=== PATIENT | female | born 1955 | race Caucasian/White ===

== ENCOUNTER 2018-05-18 15:08 | Observation (INO) | payer MEDICARE, OTHER ==
--- NOTE | 2018-05-18 16:18 | ED ---
Chest Pain HPI - General Chief Complaint: Chest Pain Stated Complaint: Chest pain Time Seen by Provider: 05/18/18 15:26 Source: patient, family, EMS, RN notes reviewed, old records reviewed Mode of arrival: EMS Limitations: no limitations - History of Present Illness Initial Comments: This is a 62-year-old female the ER for evaluation. Patient's poor strain patient presents today for evaluation regards to chest pain. Has persistent chest pain currently. History of cardiac and arteriosclerosis secondary to stroke. No history of heart disease. She has had multiple evaluations regarding stress test, no heart catheterization MD Complaint: chest pain -: days(s) Onset: during rest Pain Location: substernal, left chest Pain Radiation: LUE Severity: mild Severity scale (1-10): 3 Quality: tightness Consistency: constant Improves With: nothing Worsens With: nothing Anginal Symptoms: nausea, dyspnea Other Symptoms: palpitations - Related Data Home Medications Medication Instructions Recorded Confirmed Atorvastatin [Lipitor] 40 mg PO HS 05/08/15 05/18/18 Citalopram Hydrobromide [CeleXA] 40 mg PO HS 05/08/15 05/18/18 Dipyridamole-Aspirin 200-25 mg 1 cap PO BID 05/08/15 05/18/18 [Aggrenox 25MG -200MG] Multivitamins, Thera [Multivitamin 1 tab PO DAILY 05/08/15 05/18/18 (formulary)] Vitamin E (Dl,Tocopheryl Acet) 400 unit PO DAILY 05/08/15 05/18/18 [Vitamin E] Baclofen [Lioresal] 20 mg PO TID 05/18/18 05/18/18 Calcium/Magnesium/Zinc 1 tab PO DAILY 05/18/18 05/18/18 [Wlqowbs-Kkwtvpfvc-Ghga Tablet] Cholecalciferol (Vitamin D3) 2,000 unit PO TID 05/18/18 05/18/18 [Vitamin D3] Cyanocobalamin (Vitamin B-12) 1,000 mcg PO DAILY 05/18/18 05/18/18 [Vitamin B-12] Gabapentin [Neurontin] 400 mg PO TID 05/18/18 05/18/18 L.acidoph,Paracasei, B.lactis 1 cap PO DAILY 05/18/18 05/18/18 [Probiotic] Magnesium Chloride/Calcium(Unknown) 1 tab PO DAILY 05/18/18 05/18/18 Metoprolol Tartrate [Lopressor] 25 mg PO BID 05/18/18 05/18/18 [place]-3 Fatty Acids/Fish Oil [Fish 1 cap PO TID 05/18/18 05/18/18 Oil 1,000 mg Softgel] Allergies Allergy/AdvReac Type Severity Reaction Status Date / Time No Known Allergies Allergy Verified 05/18/18 16:32 Review of Systems ROS Statement: Those systems with pertinent positive or pertinent negative responses have been documented in the HPI. ROS Other: All systems not noted in ROS Statement are negative. Past Medical History Past Medical History: CVA/TIA, Hyperlipidemia, Osteoarthritis (OA) Additional Past Medical History / Comment(s): 05/08/15/ ADMITTED FOR C/O CHEST PAIN W/RADIATION DOWN LT ARM. 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 MURMUR, STROKE 2013 AFFECTED LT EYE(SEES LIGHT/SHAPES, RT ARM/LEG AFFECTED, UP WITH 4 PRONG WALKER AND WEARS A BRACE, SPOUSE SIGNS THINGS FOR HER, PT NEEDS HELP CUTTING FOOD BUT CAN FEED SELF FAMILY STATED NO TROUBLE CHEWING OR SWALLOWING AND CAN USE A STRAW OR DRINK OUT OF CUP NORMALLY, KEEP QUESTIONS SIMPLE WHEN TAKING TO PT(YES/NO ANSWERS).DIVERTICULAR DISEASE PER COLONOSCOPY, HERNIATED L4-, ULCER 12 YEARS AGO. History of Any Multi-Drug Resistant Organisms: None Reported Past Surgical History: Joint Replacement, Tonsillectomy Additional Past Surgical History / Comment(s): laser repair of mvp, right knee replaced, tummy tuck, LT KNEE SCOPE, CARDIAC ABLATION FOR SVT,COLONOSCOPY, MORTONS NEUROMA REMOVED FROM FOOT, LT FOOT HAMMER TOE SX HAS PIN IN PLACE, LT ADRENAL GLAND/TUMOR REMOVED, RT HAND KNUCKLE SX; catract surgery 2018 Past Anesthesia/Blood Transfusion Reactions: No Reported Reaction Past Psychological History: Depression Smoking Status: Former smoker Past Alcohol Use History: None Reported Past Drug Use History: None Reported - Past Family History Father Family Medical History: Dementia, Myocardial Infarction ([place]) Additional Family Medical History / Comment(s): CABG Mother Family Medical History: Dementia, Diabetes Mellitus, Myocardial Infarction ([place]) Additional Family Medical History / Comment(s): CABG General Exam Limitations: no limitations General appearance: alert, in no apparent distress Head exam: Present: atraumatic, normocephalic, normal inspection Eye exam: Present: normal appearance, PERRL, EOMI. Absent: scleral icterus, conjunctival injection, periorbital swelling ENT exam: Present: normal exam, mucous membranes moist Neck exam: Present: normal inspection. Absent: tenderness, meningismus, lymphadenopathy Respiratory exam: Present: normal lung sounds bilaterally. Absent: respiratory distress, wheezes, rales, rhonchi, stridor Cardiovascular Exam: Present: regular rate, normal rhythm, normal heart sounds. Absent: systolic murmur, diastolic murmur, rubs, gallop, clicks GI/Abdominal exam: Present: soft, normal bowel sounds. Absent: distended, tenderness, guarding, rebound, rigid Extremities exam: Present: normal inspection, full ROM, normal capillary refill. Absent: tenderness, pedal edema, joint swelling, calf tenderness Back exam: Present: normal inspection Neurological exam: Present: alert, oriented X3, CN II-XII intact Psychiatric exam: Present: normal affect, normal mood Skin exam: Present: warm, dry, intact, normal color. Absent: rash Course Vital Signs 05/18/18 05/18/18 05/18/18 15:30 15:31 16:00 Temperature 98.9 F Pulse Rate 56 L 55 L 57 L Respiratory 18 18 21 Rate Blood Pressure 105/64 105/64 105/64 O2 Sat by Pulse 96 96 96 Oximetry 05/18/18 05/18/18 05/18/18 16:30 17:00 17:30 Temperature Pulse Rate 53 L 53 L 57 L Respiratory 18 19 18 Rate Blood Pressure 105/64 105/64 119/60 O2 Sat by Pulse 96 97 99 Oximetry - Reevaluation(s) Reevaluation #1: 05/18/18 18:03 Medical record reviewed Reevaluation #2: 05/18/18 18:03 Patient has persistent chest pain Chest Pain MDM - MDM 62 female the ER for evaluation chest pain persistent chest pain here in the ER , patient has history of stroke. Patient will be admitted for cardiac evaluation and observation Critical Care Time Critical Care Time: Yes Total Critical Care Time: 31 Disposition Clinical Impression: Chest pain Disposition: ADMITTED IP TO THIS HOSP Condition: Undetermined Instructions (If sedation given, give patient instructions): Chest Pain (ED) Is patient prescribed a controlled substance at d/c from ED?: No Referrals: Pancho Diggs MD [Primary Care Provider] - 1-2 days
--- NOTE | 2018-05-18 16:19 | XR ---
EXAMINATION TYPE: XR chest 2V DATE OF EXAM: 05/18/2018 COMPARISON: 05/08/2015 HISTORY: 62-year-old female with chest pain TECHNIQUE: AP and lateral views FINDINGS: Heart normal size. Aorta and pulmonary vasculature within normal limits. Mild diffuse interstitial pr ominence. No consolidation or pleural effusion. IMPRESSION: Chronic-appearing changes. No acute process seen.
[2018-05-18 16:24] LABS: Basophils # (A) 0.1 k/uL (0-0.2); Basophils % (A) 1 %; Eosinophils # (A) 0.2 k/uL (0-0.7); Eosinophils % (A) 4 %; HCT 41.3 % (34.0-46.0); HGB 13.6 gm/dL (11.4-16.0); Lymphocytes # (A) 1.7 k/uL (1.0-4.8); Lymphocytes % (A) 31 %; MCH 31.2 pg (25.0-35.0); MCHC 32.9 g/dL (31.0-37.0); Mean Platelet Volume 7.7; Monocytes # (A) 0.3 k/uL (0-1.0); Monocytes % (A) 6 %; Neutrophils # (A) 3.1 k/uL (1.3-7.7); Neutrophils % (A) 56 %; Platelet Count 241 k/uL (150-450); RBC 4.35 m/uL (3.80-5.40); RDW 13.2 % (11.5-15.5); WBC 5.5 k/uL (3.8-10.6)
[2018-05-18 16:33] LABS: INR 0.9 (<1.2); Partial Thromboplastin Time 24.9 sec (22.0-30.0); Prothrombin Time 10.2 sec (9.0-12.0)
[2018-05-18 16:38] LABS: ALT 57 U/L (9-52); AST 35 U/L (14-36); Albumin 3.9 g/dL (3.5-5.0); Alkaline Phosphatase 92 U/L (38-126); Anion Gap 4 mmol/L; Blood Urea Nitrogen 17 mg/dL (7-17); Calcium 9.7 mg/dL (8.4-10.2); Carbon Dioxide 28 mmol/L (22-30); Chloride 109 mmol/L (98-107); Glucose 80 mg/dL (74-99); Lipase 144 U/L (23-300); Magnesium 2.1 mg/dL (1.6-2.3); Potassium 4.6 mmol/L (3.5-5.1); Sodium 141 mmol/L (137-145); Total Bilirubin 0.4 mg/dL (0.2-1.3); Total Protein 6.4 g/dL (6.3-8.2)
[2018-05-18 16:42] LABS: Creatine Kinase 87 U/L (30-135)
[2018-05-18 16:53] LABS: Creatine Kinase MB 0.9 ng/mL (0.0-2.4); Troponin I <0.012 ng/mL (0.000-0.034)
[2018-05-18] MEDS ORDERED: ASPIRIN 81 MG PO STA (18:00)
[2018-05-18] MEDS ORDERED: HEPARIN SOD,PORK IN 0.45% NACL 25,000 UNIT in 0.45% NACL 1 250ML.BAG IV SCH (18:00)
[2018-05-18] MEDS ORDERED: NITROGLYCERIN SL TABS 0.4 MG TAB SUBLINGUAL PRN (18:00)
[2018-05-18] MEDS ORDERED: HEPARIN SODIUM,PORCINE 5,000 UNIT/ML 1 ML VIAL IV ONE (18:00)
[2018-05-18] MEDS ORDERED: HEPARIN SODIUM,PORCINE 5,000 UNIT/ML 1 ML VIAL IV PRN (18:00)
[2018-05-18 19:56] VITALS: BMI 33.7
[2018-05-18] MEDS ORDERED: CITALOPRAM HYDROBROMIDE 20 MG TAB PO SCH (21:00)
[2018-05-18] MEDS: METOPROLOL TARTRATE 25 MG TAB PO SCH (21:54)
[2018-05-18] MEDS: GABAPENTIN 400 MG CAP PO SCH (21:54)
[2018-05-18] MEDS: BACLOFEN 10 MG TAB PO SCH (21:55)
[2018-05-18] MEDS: CHOLECALCIFEROL 1,000 UNIT TAB PO SCH (21:55)
[2018-05-18] MEDS ORDERED: NON-FORMULARY DRUG (Omega-3 Fatty Acids/Fish Oil [Fish Oil 1,000 Mg Softgel] 1 CAP) PO SCH (22:00)
[2018-05-18] MEDS: DIPYRIDAMOLE-ASPIRIN 200-25 MG 1 EACH CPMP.12HR PO SCH (22:15)
[2018-05-18 22:59] LABS: Creatine Kinase 76 U/L (30-135)
[2018-05-18 23:11] LABS: Creatine Kinase MB 0.8 ng/mL (0.0-2.4); Troponin I <0.012 ng/mL (0.000-0.034)
--- NOTE | 2018-05-19 01:59 | HP ---
HISTORY AND PHYSICAL DATE OF ADMISSION: May 18, 2018 DATE OF SERVICE: May 18, 2018. PRESENTING COMPLAINT: Chest pain. HISTORY OF PRESENTING COMPLAINT: This is a patient I saw yesterday evening who follows with Dr. Diggs. Chronic stable medical conditions include right-sided weakness from a prior stroke, hyperlipidemia, osteoarthritis, diverticulosis, L4 herniated disc. The patient also got a bicuspid aortic valve. The patient is dysarthric at baseline from a prior stroke. Answers pretty much yes and no. The patient described the left sternal lower chest pain lasting for what she described probably for about a minute. Had 2 episodes. The pain did not radiate to the neck or arm. There was no shortness of breath. No dizziness. No lightheadedness. No perspiration. Admitted for further cardiac workup. The patient had a cardiac cath back in 2015 that showed minimal disease. The patient is resting comfortably. Initial troponin was negative. Patient is started on IV heparin in the ER. REVIEW OF SYSTEMS: CONSTITUTIONAL: None. HEENT: None. RESPIRATORY: None. CARDIOVASCULAR: As above GASTROINTESTINAL: None. GENITOURINARY: None. MUSCULOSKELETAL: Arthritic pain in joints. DERMATOLOGICAL, HEMATOLOGIC, LYMPHATIC: none. PSYCHIATRY none. NEUROLOGICAL: Expressive dysarthria and weakness on the right side. PAST MEDICAL HISTORY: Right-sided weakness from prior stroke, hyperlipidemia, osteoarthritis, diverticulosis, L4 herniated disc, bicuspid aortic valve, stroke also affected the left eye, sees light and shapes. Does use a 4 pronged walker. Wears a foot brace. No trouble tolerating a diet. PAST SURGICAL HISTORY: Joint replacement, tonsillectomy, laser repair of mitral valve prolapse, right knee replaced, blaire tuck. , cardiac ablation for SVT. and neuroma removed from the foot, left foot hammertoe surgery with left adrenal gland tumor removed, right hand ankle surgery, cataract surgery. PSYCH HISTORY: Depression. SOCIAL HISTORY: The patient stopped smoking in 1996. No alcohol. Lives with her . Does use a 4 pronged cane. FAMILY HISTORY: Dementia, myocardial infarction. HOME MEDICATIONS: 1. Vitamin E 400 units a day. 2. Fish oil 1 capsule p.o. t.i.d. 3. Multivitamin 1 tablet p.o. daily. 4. Lopressor 25 p.o. b.i.d. 5. Probiotic 1 capsule p.o. daily. 6. Neurontin 400 mg t.i.d. 7. Aggrenox 20/200 one capsule p.o. b.i.d. 8. Vitamin B12 1000 mcg a day. 9. Celexa 40 mg q.h.s. 10.Vitamin D3 2000 units p.o. t.i.d. 11.Calcium, magnesium, zinc tablet 1 tablet p.o. daily. 12.Baclofen 20 mg t.i.d. 13.Lipitor 40 mg q.h.s. ALLERGIES: None. PHYSICAL EXAMINATION: VITAL SIGNS: Temperature 98.2, pulse 57, respirations 16, blood pressure 102/63, pulse ox 93 percent on room air. GENERAL APPEARANCE: Well built, BMI 32.3, lying in bed, comfortable. EYES: Pupils equal. Conjunctivae normal. HEENT: External appearance of nose and ears normal. Oral cavity normal. NECK: JVD unable to assess. Mass not palpable. RESPIRATORY: Effort normal. LUNGS: Fair air entry. CARDIOVASCULAR: Ejection systolic murmur in the aortic area. No edema. ABDOMEN: Soft, nontender. Liver and spleen not palpable. LYMPHATIC: No lymph nodes palpable in the neck and axilla. PSYCHIATRY: Not really to assess. NEUROLOGICAL: Speech is dysarthric speech and patient only answers pretty much yes and no. Power in the right arm and the right leg, power in the right leg is 3 x 5, power in the right arm is 1/5. INVESTIGATIONS: White count 5.5, hemoglobin 13.6, potassium 4.6, BUN and creatinine normal. Troponin x2 was negative. EKG tracing personally reviewed by me shows normal sinus rhythm, right bundle branch block. Chest x-ray film personally reviewed by me shows borderline cardiomegaly. Very slight venous prominence. Report reviews report some chronic changes. ASSESSMENT: 1. Anterior chest wall pain, two episodes from what appears to be a minute each. Given risk factors, this could be angina. 2. Right hemiparesis from prior stroke. 3. Hyperlipidemia. 4. Primary osteoarthritis. 5. Colonic diverticulosis. 6. Chronic L4 herniated disc. 7. Bicuspid aortic valve. 8. Chronic dysarthria from prior stroke. PLAN: Patient is started on IV heparin in the ER. Home medications are resumed. Because of bradycardia, we will keep a close eye on the heart rate because of heart rate keep a close eye on the same. Cardiology was consulted. Serial cardiac enzymes in place. The patient will be seen by Cardiology. Care was discussed with the patient. Copy to Dr. Diggs. HILDA / MADELAINE: [id number] /
[2018-05-19 05:55] LABS: Creatine Kinase 70 U/L (30-135)
[2018-05-19 06:06] LABS: Creatine Kinase MB 0.8 ng/mL (0.0-2.4); Troponin I <0.012 ng/mL (0.000-0.034)
[2018-05-19 06:43] LABS: Mean Platelet Volume 7.6; Platelet Count 209 k/uL (150-450)
[2018-05-19 07:12] LABS: Cholesterol 131 mg/dL (<200); HDL Cholesterol 58 mg/dL (40-60); LDL Cholesterol,Calculated 51 mg/dL (0-99); Triglycerides 112 mg/dL (<150)
[2018-05-19 07:51] VITALS: RESP 18
[2018-05-19] MEDS ORDERED: LACTOBACILLUS ACIDOPH & BULGAR 1 EACH PACKET PO SCH (09:00)
[2018-05-19] MEDS ORDERED: ATORVASTATIN 80 MG TAB PO SCH ×2 (09:00→21:00)
[2018-05-19] MEDS ORDERED: NON-FORMULARY DRUG (Calcium/Magnesium/Zinc [Calcium-Magnesium-Zinc Tablet] 1 TAB) PO SCH (09:00)
[2018-05-19] MEDS ORDERED: ASPIRIN 325 MG TAB PO SCH (09:00)
[2018-05-19] MEDS ORDERED: CALCIUM PO SCH (09:00)
[2018-05-19] MEDS ORDERED: VITAMIN E (DL,TOCOPHERYL ACET) 400 UNIT CAP PO SCH (09:00)
[2018-05-19] MEDS ORDERED: MAGNESIUM CHLORIDE PO SCH (09:00)
[2018-05-19] MEDS ORDERED: CYANOCOBALAMIN 500 MCG TAB PO SCH (09:00)
[2018-05-19] MEDS ORDERED: CAFFEINE CITRATE 60 MG/3 ML VIAL IV PRN (11:02)
[2018-05-19] MEDS ORDERED: REGADENOSON 0.4 MG/5 ML SYRINGE IV ONE (11:02)
--- NOTE | 2018-05-19 11:17 | P.CRDCN ---
History of Present Illness History of present illness: This is a pleasant 62 year old female past medical history significant for CVA with residual right-sided weakness and speech difficulty, bicuspid aortic valve with mild to moderate aortic regurgitation, dyslipidemia, SVT status post ablation and thoracic descending aortic aneurysm 4.2 cm on most recent CT. She follows with Dr. Laureano in the office. We've asked to see her in consultation for symptoms of chest discomfort. Her who is at the bedside the patient ate lunch yesterday and had some trauma next. Approximately 90 minutes thereafter she developed a tight squeezing sensation in the left precordial region. There is no significant shortness of breath, dizziness, palpitations, nausea, vomiting or diaphoresis associated with this. Her symptoms persisted for checked her blood pressure at home which she states was normal. Upon arrival to the emergency department she continued to have ongoing chest discomfort. She was initiated on a heparin infusion and her pain ultimately subsided approximately an hour or so later. She is seen and examined resting comfortably lying flat in bed in no acute distress. She denies any further symptoms of chest discomfort. In 2016 she underwent a Lexiscan stress test which was positive prompting her to undergo cardiac catheterization. The catheterization revealed a 50% lesion in the proximal circumflex artery. FFR was performed and was negative therefore no stent or balloon angioplasty was performed. EKG on arrival reveals right bundle branch block pattern with LVH. This is consistent with old EKG. Chest x-ray is negative for an acute cardiopulmonary process. Laboratory data reviewed, cardiac enzymes negative 3, creatinine 0.73, LDL 51 and 2 proBNP 104. Current cardiac medications include atorvastatin 40 mg daily, Lopressor 25 mg twice a day and aggrenox 25/300 mg BID since her CVA. At the time of my exam: CONSTITUTIONAL: Denies fever. Denies chills. EYES: Denies blurred vision. Denies vision changes. Denies eye pain. EARS, NOSE, MOUTH & THROAT: Denies headache. Denies sore throat. Denies ear pain. CARDIOVASCULAR: Denies chest pain. Denies shortness of breath. Denies orthopnea. Denies PND. Denies palpitations. RESPIRATORY: Denies cough. GASTROINTESTINAL: Denies abdominal pain. Denies diarrhea. Denies constipation. Denies nausea. Denies vomiting. MUSCULOSKELETAL: Denies myalgias. INTEGUMENTARY: Denies pruitis. Denies rash. NEUROLOGIC: Denies numbness. Denies tingling. Denies weakness. PSYCHIATRIC: Denies anxiety. Denies depression. ENDOCRINE: Denies fatigue. Denies weight change. Denies polydipsia. Denies polyurina. GENITOURINARY: Denies burning, hematuria or urgency with micturation. HEMATOLOGIC: Denies history of anemia. Denies bleeding. Blood pressure 97/50 heart rate 59 afebrile maintaining oxygen saturation on room air GENERAL: This is a 62-year-old female in no apparent distress at the time of my examination. HEENT: Head is atraumatic, normocephalic. Pupils are equal, round. Sclerae anicteric. Conjunctivae are clear. Mucous membranes of the mouth are moist. Neck is supple. There is no jugular venous distention. No carotid bruit is heard. LUNGS: Clear to auscultation no wheezes, rales or rhonchi. No chest wall tenderness is noted on palpation or with deep breathing. HEART: Regular rate and rhythm with murmur at the base, no rubs or gallops. S1 and S2 heard. ABDOMEN: Soft, nontender. Bowel sounds are heard. No organomegaly noted. EXTREMITIES: No evidence of peripheral edema and no calf tenderness noted. VASCULAR: Radial and dorsalis pedis pulses palpated, no evidence of clubbing. NEUROLOGIC: Patient is awake, alert and oriented. Expressive aphasia chronic from CVA. ASSESSMENT Chest pain, atypical for angina. An acute coronary event at some ruled out with no EKG evidence of ischemia and negative cardiac enzymes. History of coronary artery disease with a known lesion 50% in the proximal circumflex artery History of CVA Dyslipidemia Bicuspid aortic valve History of abdominal aortic aneurysm, stable PLAN An acute coronary event has been ruled out. Obtain 2D echocardiogram and doppler study to assess cardiac structure and function. Perform Lexiscan stress test to assess for reversible cardiac ischemia. If abnormal will consider coronary angiography if significant. Thank you kindly for this consultation. Nurse Practitioner note has been reviewed, I agree with a documented findings and plan of care. Patient was seen and examined. Past Medical History Past Medical History: CVA/TIA, Hyperlipidemia, Osteoarthritis (OA) Additional Past Medical History / Comment(s): 05/08/15/ ADMITTED FOR C/O CHEST PAIN W/RADIATION DOWN LT ARM. 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 MURMUR, STROKE 2014 AFFECTED LT EYE(SEES LIGHT/SHAPES, RT ARM/LEG AFFECTED, UP WITH 4 PRONG WALKER AND WEARS A BRACE, SPOUSE SIGNS THINGS FOR HER, PT NEEDS HELP CUTTING FOOD BUT CAN FEED SELF FAMILY STATED NO TROUBLE CHEWING OR SWALLOWING AND CAN USE A STRAW OR DRINK OUT OF CUP NORMALLY, KEEP QUESTIONS SIMPLE WHEN TAKING TO PT(YES/NO ANSWERS).DIVERTICULAR DISEASE PER COLONOSCOPY, HERNIATED L4-, ULCER 12 YEARS AGO. History of Any Multi-Drug Resistant Organisms: None Reported Past Surgical History: Joint Replacement, Tonsillectomy Additional Past Surgical History / Comment(s): laser repair of mvp, right knee replaced, tummy tuck, LT KNEE SCOPE, CARDIAC ABLATION FOR SVT,COLONOSCOPY, MORTONS NEUROMA REMOVED FROM FOOT, LT FOOT HAMMER TOE SX HAS PIN IN PLACE, LT ADRENAL GLAND/TUMOR REMOVED, RT HAND KNUCKLE SX; catract surgery 2017 Past Anesthesia/Blood Transfusion Reactions: No Reported Reaction Past Psychological History: Depression Additional Psychological History / Comment(s): MAINTAINED ON HER MEDICATION Smoking Status: Former smoker Past Alcohol Use History: None Reported Additional Past Alcohol Use History / Comment(s): QUIT SMOKING 1996 Past Drug Use History: None Reported - Past Family History Father Family Medical History: Dementia, Myocardial Infarction ([place]) Additional Family Medical History / Comment(s): CABG Mother Family Medical History: Dementia, Diabetes Mellitus, Myocardial Infarction ([place]) Additional Family Medical History / Comment(s): CABG Medications and Allergies Home Medications Medication Instructions Recorded Confirmed Type Atorvastatin [Lipitor] 40 mg PO HS 05/08/15 05/18/18 History Citalopram Hydrobromide [CeleXA] 40 mg PO HS 05/08/15 05/18/18 History Dipyridamole-Aspirin 200-25 mg 1 cap PO BID 05/08/15 05/18/18 History [Aggrenox 25MG -200MG] Multivitamins, Thera [Multivitamin 1 tab PO DAILY 05/08/15 05/18/18 History (formulary)] Vitamin E (Dl,Tocopheryl Acet) 400 unit PO DAILY 05/08/15 05/18/18 History [Vitamin E] Baclofen [Lioresal] 20 mg PO TID 05/18/18 05/18/18 History Calcium/Magnesium/Zinc 1 tab PO DAILY 05/18/18 05/18/18 History [Kxfmtma-Sltracmvm-Xutj Tablet] Cholecalciferol (Vitamin D3) 2,000 unit PO TID 05/18/18 05/18/18 History [Vitamin D3] Cyanocobalamin (Vitamin B-12) 1,000 mcg PO DAILY 05/18/18 05/18/18 History [Vitamin B-12] Gabapentin [Neurontin] 400 mg PO TID 05/18/18 05/18/18 History L.acidoph,Paracasei, B.lactis 1 cap PO DAILY 05/18/18 05/18/18 History [Probiotic] Magnesium Chloride/Calcium(Unknown) 1 tab PO DAILY 05/18/18 05/18/18 History Metoprolol Tartrate [Lopressor] 25 mg PO BID 05/18/18 05/18/18 History [place]-3 Fatty Acids/Fish Oil [Fish 1 cap PO TID 05/18/18 05/18/18 History Oil 1,000 mg Softgel] Allergies Allergy/AdvReac Type Severity Reaction Status Date / Time No Known Allergies Allergy Verified 05/18/18 16:32 Physical Exam Vitals: Vital Signs Temp Pulse Pulse Resp BP BP Pulse Ox 05/19/18 07:49 97.6 F 59 L 18 97/50 94 L 05/19/18 04:00 97.7 F 58 L 16 89/53 94 L 05/19/18 00:00 57 L 16 05/18/18 23:58 98.2 F 57 L 16 102/63 93 L 05/18/18 20:00 55 L 16 05/18/18 19:54 97.6 F 55 L 16 117/58 97 05/18/18 19:00 51 L 18 132/70 98 05/18/18 18:30 55 L 18 115/64 98 05/18/18 18:00 50 L 18 115/55 100 05/18/18 17:30 57 L 18 119/60 99 05/18/18 17:00 53 L 19 105/64 97 05/18/18 16:30 53 L 18 105/64 96 05/18/18 16:00 57 L 21 105/64 96 05/18/18 15:31 98.9 F 55 L 18 105/64 96 05/18/18 15:30 56 L 18 105/64 96 Intake and Output 05/18/18 05/19/18 05/19/18 22:59 06:59 14:59 Intake Total 59.21 Balance 59.21 Intake: Intake, IV Titration 59.21 Amount Heparin Sod,Pork in 0.45% 59.21 NaCl 25,000 unit In 0.45 % NaCl 1 250ml.bag @ 12 UNITS/KG/HR 9.3 mls/hr IV .Q24H [facility] Rx#:[id number] Other: # Voids 3 1 Weight 77.564 kg Results 05/19/18 05:56 05/18/18 16:00 Cardiac Enzymes 05/18/18 05/18/18 05/18/18 Range/Units 16:00 16:00 22:11 AST 35 (14-36) U/L CK-MB (CK-2) 0.9 0.8 (0.0-2.4) ng/mL Troponin I <0.012 <0.012 (0.000-0.034) ng/mL 05/19/18 Range/Units 04:09 AST (14-36) U/L CK-MB (CK-2) 0.8 (0.0-2.4) ng/mL Troponin I <0.012 (0.000-0.034) ng/mL Coagulation 05/18/18 05/19/18 05/19/18 Range/Units 16:00 00:17 05:56 PT 10.2 (9.0-12.0) sec APTT 24.9 79.1 H 51.2 H (22.0-30.0) sec Lipids 05/19/18 Range/Units 05:56 Triglycerides 112 (<150) mg/dL Cholesterol 131 (<200) mg/dL HDL Cholesterol 58 (40-60) mg/dL CBC 05/18/18 05/19/18 Range/Units 16:00 05:56 WBC 5.5 (3.8-10.6) k/uL RBC 4.35 (3.80-5.40) m/uL Hgb 13.6 (11.4-16.0) gm/dL Hct 41.3 (34.0-46.0) % Plt Count 241 209 (150-450) k/uL Comprehensive Metabolic Panel 05/18/18 Range/Units 16:00 Sodium 141 (137-145) mmol/L Potassium 4.6 (3.5-5.1) mmol/L Chloride 109 H (98-107) mmol/L Carbon Dioxide 28 (22-30) mmol/L BUN 17 (7-17) mg/dL Creatinine 0.73 (0.52-1.04) mg/dL Glucose 80 (74-99) mg/dL Calcium 9.7 (8.4-10.2) mg/dL AST 35 (14-36) U/L ALT 57 H (9-52) U/L Alkaline Phosphatase 92 (38-126) U/L Total Protein 6.4 (6.3-8.2) g/dL Albumin 3.9 (3.5-5.0) g/dL Current Medications Generic Name Dose Route Start Last Admin Trade Name Freq PRN Reason Stop Dose Admin Aspirin 325 mg 05/19/18 09:00 Aspirin PO DAILY [facility] Atorvastatin Calcium 80 mg 05/19/18 09:00 Lipitor PO DAILY [facility] Baclofen 20 mg 05/18/18 22:00 05/18/18 21:55 Lioresal PO 20 mg TID JJ Administration Cholecalciferol 2,000 unit 05/18/18 22:00 05/18/18 21:55 Vitamin D3 PO 2,000 unit TID JJ Administration Citalopram Hydrobromide 40 mg 05/18/18 21:00 05/18/18 21:54 Celexa PO 40 mg HS JJ Administration Cyanocobalamin 1,000 mcg 05/19/18 09:00 Vitamin B-12 PO DAILY [facility] Dipyridamole/Aspirin 1 each 05/18/18 21:00 05/18/18 22:15 Aggrenox PO 1 each BID JJ Administration Gabapentin 400 mg 05/18/18 22:00 05/18/18 21:54 Neurontin PO 400 mg TID JJ Administration Heparin Sodium (Porcine) 0 unit 05/18/18 18:00 Heparin IV Q6HR PRN Low PTT Protocol Heparin Sodium/Sodium Chloride 250 mls @ 9.3 mls/hr 05/18/18 18:00 05/19/18 01:11 25,000 unit/ Sodium Chloride IV 10 units/kg/hr .Q24H JJ 7.75 mls/hr Titration Protocol 12 UNITS/KG/HR Lactobacillus Acidoph/[place]icus 1 each 05/19/18 09:00 Lactinex PO DAILY [facility] Metoprolol Tartrate 25 mg 05/18/18 21:00 05/18/18 21:54 Lopressor PO 25 mg BID JJ Administration Multivitamins 1 each 05/19/18 12:00 Theragran PO DAILY@1200 JJ Nitroglycerin 0.4 mg 05/18/18 18:00 Nitrostat SUBLINGUAL Q5M PRN Chest Pain Vitamin E 400 unit 05/19/18 09:00 Vitamin E PO DAILY [facility] Intake and Output 05/18/18 05/19/18 05/19/18 22:59 06:59 14:59 Intake Total 59.21 Balance 59.21 Intake: Intake, IV Titration 59.21 Amount Heparin Sod,Pork in 0.45% 59.21 NaCl 25,000 unit In 0.45 % NaCl 1 250ml.bag @ 12 UNITS/KG/HR 9.3 mls/hr IV .Q24H [facility] Rx#:[id number] Other: # Voids 3 1 Weight 77.564 kg 05/19/18 05:56 05/18/18 16:00
[2018-05-19 11:35] VITALS: PULSE 55
[2018-05-19] MEDS ORDERED: MULTIVITAMINS, THERA 1 EACH TAB PO SCH (12:00)
[2018-05-19] MEDS: BACLOFEN 10 MG TAB PO SCH (13:35)
[2018-05-19] MEDS: CHOLECALCIFEROL 1,000 UNIT TAB PO SCH (13:36)
[2018-05-19] MEDS: GABAPENTIN 400 MG CAP PO SCH (13:36)
[2018-05-19] MEDS: METOPROLOL TARTRATE 25 MG TAB PO SCH (13:37)
[2018-05-19] MEDS: DIPYRIDAMOLE-ASPIRIN 200-25 MG 1 EACH CPMP.12HR PO SCH (13:39)
--- NOTE | 2018-05-19 13:48 | NM ---
EXAMINATION TYPE: NM stress lexiscan cardiolite DATE OF EXAM: 05/19/2018 COMPARISON: Prior nuclear medicine stress test May 09, 2015 HISTORY: History of hypertension, tobacco use quit 20 years ago, hypercholesteremia, prior stroke, an d family history of heart attack presents with chest pain TECHNIQUE: After the intravenous administration of 10.76 mCi Tc 99m Sestamibi - Cardiolite resting S PECT images acquired 50 minutes post injection. The patient received 0.4mg Lexiscan, 25.2 mCi Tc 99m Sestamibi - Stress images obtained [address] injection FINDINGS: Review of stress and rest SPECT images demonstrates for uptake in the inferior left ventricular wall on short axis and vertical long axis views more prominent mid segment apex system with old infarct. T here is no scintigraphic evidence for reversible ischemia. Gated analysis shows estimated left ventr icular ejection fraction of 67 %. IMPRESSION: Possible old infarct inferior left ventricular wall new from 2016 study. No reversible is chemia is identified currently.
--- NOTE | 2018-05-19 15:31 | P.HPIM ---
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 Descending thoracic aorta of 4.2 cm on the last CAT scan nor system, Hyperlipidemia. She presents because of chest pain, central of one-day duration. No associated dyspnea. No nausea vomiting. No sweating. Patient has been evaluated by cardiology team and she had a negative stress test showing old Inferior infarct but no reversible ischemia. Patient chest pain is completely resolved and when asked her the rate for her pain she told me at 0/10 in severity. Patient she states she is back to her baseline and she wants to be discharged home. at bedside. Problems and management plan was discussed with the patient and she verbalized understanding and acceptance Patient was found stable and can be discharged home however she needs follow-up as an outpatient. Patient and told me they going to follow-up with her PCP Dr. Anthony and her lens blocker Dr. Laureano as instructed in the discharge instructions. physical exam Gen.: Patient alert awake and oriented X 3, NOT IN DISTRESS CVS: s1-s2, RRR, no murmur CHEST:bilateral CTA, no wheezing or crepitation Abdomen: Soft, no tenderness, no distention, positive bowel sounds Extremities: No leg edema or induration time spent more than 35 minutes Past Medical History Past Medical History: CVA/TIA, Hyperlipidemia, Osteoarthritis (OA) Additional Past Medical History / Comment(s): 05/08// ADMITTED FOR C/O CHEST PAIN W/RADIATION DOWN LT ARM. 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 MURMUR, STROKE 2014 AFFECTED LT EYE(SEES LIGHT/SHAPES, RT ARM/LEG AFFECTED, UP WITH 4 PRONG WALKER AND WEARS A BRACE, SPOUSE SIGNS THINGS FOR HER, PT NEEDS HELP CUTTING FOOD BUT CAN FEED SELF FAMILY STATED NO TROUBLE CHEWING OR SWALLOWING AND CAN USE A STRAW OR DRINK OUT OF CUP NORMALLY, KEEP QUESTIONS SIMPLE WHEN TAKING TO PT(YES/NO ANSWERS).DIVERTICULAR DISEASE PER COLONOSCOPY, HERNIATED L4-, ULCER 12 YEARS AGO. History of Any Multi-Drug Resistant Organisms: None Reported Past Surgical History: Joint Replacement, Tonsillectomy Additional Past Surgical History / Comment(s): laser repair of mvp, right knee replaced, tummy tuck, LT KNEE SCOPE, CARDIAC ABLATION FOR SVT,COLONOSCOPY, MORTONS NEUROMA REMOVED FROM FOOT, LT FOOT HAMMER TOE SX HAS PIN IN PLACE, LT ADRENAL GLAND/TUMOR REMOVED, RT HAND KNUCKLE SX; catract surgery 2018 Past Anesthesia/Blood Transfusion Reactions: No Reported Reaction Past Psychological History: Depression Additional Psychological History / Comment(s): MAINTAINED ON HER MEDICATION Smoking Status: Former smoker Past Alcohol Use History: None Reported Additional Past Alcohol Use History / Comment(s): QUIT SMOKING 1996 Past Drug Use History: None Reported - Past Family History Father Family Medical History: Dementia, Myocardial Infarction ([place]) Additional Family Medical History / Comment(s): CABG Mother Family Medical History: Dementia, Diabetes Mellitus, Myocardial Infarction ([place]) Additional Family Medical History / Comment(s): CABG Medications and Allergies Home Medications Medication Instructions Recorded Confirmed Type Atorvastatin [Lipitor] 40 mg PO HS 05/08/15 05/18/18 History Citalopram Hydrobromide [CeleXA] 40 mg PO HS 05/08/15 05/18/18 History Dipyridamole-Aspirin 200-25 mg 1 cap PO BID 05/08/15 05/18/18 History [Aggrenox 25MG -200MG] Multivitamins, Thera [Multivitamin 1 tab PO DAILY 05/08/15 05/18/18 History (formulary)] Vitamin E (Dl,Tocopheryl Acet) 400 unit PO DAILY 05/08/15 05/18/18 History [Vitamin E] Baclofen [Lioresal] 20 mg PO TID 05/18/18 05/18/18 History Calcium/Magnesium/Zinc 1 tab PO DAILY 05/18/18 05/18/18 History [Kjpvmgz-Qccktvalv-Ccdx Tablet] Cholecalciferol (Vitamin D3) 2,000 unit PO TID 05/18/18 05/18/18 History [Vitamin D3] Cyanocobalamin (Vitamin B-12) 1,000 mcg PO DAILY 05/18/18 05/18/18 History [Vitamin B-12] Gabapentin [Neurontin] 400 mg PO TID 05/18/18 05/18/18 History L.acidoph,Paracasei, B.lactis 1 cap PO DAILY 05/18/18 05/18/18 History [Probiotic] Magnesium Chloride/Calcium(Unknown) 1 tab PO DAILY 05/18/18 05/18/18 History Metoprolol Tartrate [Lopressor] 25 mg PO BID 05/18/18 05/18/18 History [place]-3 Fatty Acids/Fish Oil [Fish 1 cap PO TID 05/18/18 05/18/18 History Oil 1,000 mg Softgel] Allergies Allergy/AdvReac Type Severity Reaction Status Date / Time No Known Allergies Allergy Verified 05/18/18 16:32 Physical Exam Vitals: Vital Signs Temp Pulse Pulse Resp BP BP Pulse Ox 05/19/18 11:34 98.2 F 55 L 18 105/65 95 05/19/18 07:49 97.6 F 59 L 18 97/50 94 L 05/19/18 04:00 97.7 F 58 L 16 89/53 94 L 05/19/18 00:00 57 L 16 05/18/18 23:58 98.2 F 57 L 16 102/63 93 L 05/18/18 20:00 55 L 16 05/18/18 19:54 97.6 F 55 L 16 117/58 97 05/18/18 19:00 51 L 18 132/70 98 05/18/18 18:30 55 L 18 115/64 98 05/18/18 18:00 50 L 18 115/55 100 05/18/18 17:30 57 L 18 119/60 99 05/18/18 17:00 53 L 19 105/64 97 05/18/18 16:30 53 L 18 105/64 96 05/18/18 16:00 57 L 21 105/64 96 05/18/18 15:31 98.9 F 55 L 18 105/64 96 05/18/18 15:30 56 L 18 105/64 96 Intake and Output 05/19/18 05/19/18 05/19/18 06:59 14:59 22:59 Intake Total 59.21 436 Balance 59.21 436 Intake: Intake, IV Titration 59.21 Amount Heparin Sod,Pork in 0.45% 59.21 NaCl 25,000 unit In 0.45 % NaCl 1 250ml.bag @ 12 UNITS/KG/HR 9.3 mls/hr IV .Q24H JJ Rx#:[id number] Oral 236 Other 200 Other: # Voids 3 1 Results CBC & Chem 7: 05/19/18 05:56 05/18/18 16:00 Labs: Abnormal Lab Results - Last 24 Hours (Table) 05/18/18 05/19/18 05/19/18 Range/Units 16:00 00:17 05:56 APTT 79.1 H 51.2 H (22.0-30.0) sec Chloride 109 H (98-107) mmol/L ALT 57 H (9-52) U/L Thrombosis Risk Factor Assmnt - Choose All That Apply Any of the Below Risk Factors Present?: No Each Risk Factor Represents 2 Points: Age 61-74 years Other congenital or acquired thrombophilia - If yes, enter type in comment: No Thrombosis Risk Factor Assessment Total Risk Factor Score: 2 Thrombosis Risk Factor Assessment Level: Low Risk
[2018-05-19 15:43] VITALS: BP 100/65; TEMP 98.3
--- NOTE | 2018-05-19 20:28 | ECHOF ---
Referral Reason: MEASUREMENTS -------- HEIGHT: 154.9 cm WEIGHT: 77.6 kg BP: 97/50 IVSd: 1.0 cm (0.6 - 1.1) LVIDd: 4.2 cm (3.9 - 5.3) LVPWd: 1.0 cm (0.6 - 1.1) IVSs: 1.3 cm LVIDs: 2.8 cm LVPWs: 1.3 cm LAESV Index (A-L): 14.75 ml/m Ao Diam: 3.7 cm (2.0 - 3.7) LA Diam: 1.9 cm (2.7 - 3.8) AV Cusp: 1.2 cm (1.5 - 2.6) EPSS: 0.9 cm MV E Mehdi: 0.79 m/s MV DecT: 292 ms MV A Mehdi: 0.74 m/s MV E/A Ratio: 1.06 AV maxP.75 mmHg AV meanP.80 mmHg RAP: 5.00 mmHg RVSP: 27.00 mmHg MV EF SLOPE: 53.65 mm/s (70 - 150) MV EXCURSION: 1.35 cm (> 18.000) FINDINGS -------- Resting bradycardia (HR<60bpm). This was a technically adequate study. The left ventricular size is normal. Left ventricular wall thickness is normal. Overall left vent ricular systolic function is normal with, an EF between 55 - 60 %. The right ventricle is normal in size and function. Normal LA size by volume 22+/-6 ml/m2. RA appears enlarged. There is moderate aortic valve sclerosis. There is rhylgapr-bt-zdseyf aortic regurgitation. There is mild aortic stenosis present. Peak/mean gradient across the Aortic Valve is 29.75mmHg / 16.80mm Hg. The mitral valve leaflets are mildly thickened. Mild mitral annular calcification present. Mild m itral regurgitation is present. Cdys-tg-glomlbtc tricuspid regurgitation present. Right ventricular systolic pressure is normal at < 35 mmHg. There is no evidence of pulmonary hypertension. The pulmonic valve was not well visualized. The aortic root and ascending aorta are dilated measuring up to 4.0 cm. Normal inferior vena cava with normal inspiratory collapse consistent with estimated right atrial pre ssure of 5 mmHg. There is no pericardial effusion. CONCLUSIONS -------- 1. Resting bradycardia (HR<60bpm). 2. This was a technically adequate study. 3. The left ventricular size is normal. 4. Left ventricular wall thickness is normal. 5. Overall left ventricular systolic function is normal with, an EF between 55 - 60 %. 6. Normal LA size by volume 22+/-6 ml/m2. 7. RA appears enlarged. 8. There is moderate aortic valve sclerosis. 9. There is wzxmbuqn-sp-oknell aortic regurgitation. 10. There is mild aortic stenosis present. 11. Peak/mean gradient across the Aortic Valve is 29.75mmHg / 16.80mmHg. 12. The mitral valve leaflets are mildly thickened. 13. Mild mitral annular calcification present. 14. Mild mitral regurgitation is present. 15. Qmcw-wz-aggahzgb tricuspid regurgitation present. 16. Right ventricular systolic pressure is normal at < 35 mmHg. 17. There is no evidence of pulmonary hypertension. 18. The pulmonic valve was not well visualized. 19. The aortic root and ascending aorta are dilated measuring up to 4.0 cm. 20. There is no pericardial effusion. FINANCIAL BUSINESS ANALYST: Eliezer Black RDCS
--- NOTE | 2018-05-20 11:43 | EST ---
EXERCISE STRESS DATE OF SERVICE: 05/19/2018 AGE: 62 SEX: Female HT: 61" WT: 171 PROTOCOL: Lexiscan Cardiolite STAGE: DURATION OF EXERCISE: HEART RATE REST: 59 BLOOD PRESSURE REST: 112/76 MAXIMUM HEART RATE ACHIEVED: 87 MAXIMUM BLOOD PRESSURE: 140/106 85% MPHR: 100% MPHR: METS: INDICATIONS: Chest pain. CLINICAL INFORMATION: Baseline heart rate 59 beats per minute. Baseline blood pressure 112/76 mmHg. The patient received Lexiscan infusion per protocol. Baseline 12-lead ECG shows sinus rhythm with incomplete right bundle branch block pattern. There was no ECG evidence for ischemia. No arrhythmias were noted. Heart rate and blood pressure remained stable. Nuclear portion of the stress test will be reported separately. MMODL / IJN: [id number] /
--- NOTE | 2018-05-25 14:08 | CDI ---
Date: 05/25/18 CDS/Transportation Superintendent Name: Zee Marin Phone: If any questions, call Nika Khan Trail Construction Worker at [phone] Patient Name: Marsha Patiño Admit Date: 05/18/18 Discharge Date: 05/19/18 ATTENTION: The [facility] Coding Staff appreciate your assistance in clarifying documentation. Please respond to the clarification below the line at the bottom and electronically sign. The [facility] Coding staff will review the response and follow-up if needed. Please note: Queries are made part of the Legal Health Record. If you have any questions, please contact the Trail Construction Worker. Dear Dr. Beckett, Please provide clarification as to the location of the patient's aneurysm. H&P and consult both under History of present illness state Descending thoracic aneurysm. Consult under Assessment it is stated as Abdominal aortic aneurysm. Please clarify. Thank you for your kind consideration. pl contact admitting physician MARIELENA
--- NOTE | 2018-05-27 14:10 | CDI ---
Date: 05/27/18 CDS/Dinkey Engine Mechanic Name: Zee Marin Phone: If any questions, call Nika Khan Quality Engineering Manager at [phone] Patient Name: Marsha Patiño Admit Date: 05/18/18 Discharge Date: 05/19/18 ATTENTION: The [facility] Coding Staff appreciate your assistance in clarifying documentation. Please respond to the clarification below the line at the bottom and electronically sign. The [facility] Coding staff will review the response and follow-up if needed. Please note: Queries are made part of the Legal Health Record. If you have any questions, please contact the Quality Engineering Manager. Dear Dr. Hernandez, Please provide clarification as to the location of the patient's aneurysm. H&P and consult both under History of present illness state Descending thoracic aneurysm. Consult under Assessment it is stated as Abdominal aortic aneurysm. Please clarify. Thank you for your kind consideration response: ascending aortic aneurysm MTDD
== END 2018-05-19 16:54 | disposition home or self-care (01) ==
LOC: EC 15:08 → 1SOBS 18:00
PROVIDERS: ADMIT Hospitalist; ATTEND Hospitalist
DX: R07.89 Other chest pain (principal); R11.2 Nausea with vomiting, unspecified; I35.1 Nonrheumatic aortic (valve) insufficiency; Q23.1 Congenital insufficiency of aortic valve; I25.10 Atherosclerotic heart disease of native coronary artery without angina pectoris; Z87.891 Personal history of nicotine dependence; I69.320 Aphasia following cerebral infarction; I69.351 Hemiplegia and hemiparesis following cerebral infarction affecting right dominant side; I69.322 Dysarthria following cerebral infarction; I69.398 Other sequelae of cerebral infarction; H53.8 Other visual disturbances; I71.2 Thoracic aortic aneurysm, without rupture; I45.10 Unspecified right bundle-branch block; E78.5 Hyperlipidemia, unspecified; F32.9 Major depressive disorder, single episode, unspecified; K57.30 Diverticulosis of large intestine without perforation or abscess without bleeding; M19.91 Primary osteoarthritis, unspecified site; Z82.49 Family history of ischemic heart disease and other diseases of the circulatory system; Z83.3 Family history of diabetes mellitus; M51.26 Other intervertebral disc displacement, lumbar region; Z79.02 Long term (current) use of antithrombotics/antiplatelets; Z79.82 Long term (current) use of aspirin; Z79.899 Other long term (current) drug therapy
CPT/HCPCS: 96366 ×2; 96376; 96365; 99291; 36415; 93005; 93017; 93306; 83880; 80061; 80053; 82550 ×2; 82553 ×2; 83690; 83735; 84484 ×2; 85025; 85049; 85610; 85730 ×2; 71046; 78452; G0378 ×2; A9500; J1644 ×2; J2785

== ENCOUNTER 2018-05-24 21:48 | Emergency (ER) | payer MEDICARE, OTHER ==
[2018-05-24 22:00] VITALS: TEMP 97.5
--- NOTE | 2018-05-24 22:37 | ED ---
Fall HPI - General Chief Complaint: Fall Stated Complaint: Fall Time Seen by Provider: 05/24/18 21:50 Source: patient, EMS Mode of arrival: EMS Limitations: language barrier (Expressive aphasia) - History of Present Illness MD Complaint: fall Onset/Timin -: hour(s) Fall From: standing When Fall Occurred: other (12 hours) Fall Witnessed: yes, by family Place Fall Occurred: home Loss of Consciousness: none Prolonged Down Time?: no Symptoms Prior to Fall: none Location: head, neck, chest Location - Extremities: Right: Leg Severity: moderate Context: tripped/slipped Associated Symptoms: headache - Related Data Home Medications Medication Instructions Recorded Confirmed Citalopram Hydrobromide [CeleXA] 40 mg PO HS 05/08/15 05/24/18 Dipyridamole-Aspirin 200-25 mg 1 cap PO BID 05/08/15 05/24/18 [Aggrenox 25MG -200MG] Multivitamins, Thera [Multivitamin 1 tab PO DAILY 05/08/15 05/24/18 (formulary)] Vitamin E (Dl,Tocopheryl Acet) 400 unit PO DAILY 05/08/15 05/24/18 [Vitamin E] Baclofen [Lioresal] 20 mg PO TID 05/18/18 05/24/18 Calcium/Magnesium/Zinc 1 tab PO DAILY 05/18/18 05/24/18 [Yeeduvz-Kxqwgxagl-Bifi Tablet] Cholecalciferol (Vitamin D3) 2,000 unit PO TID 05/18/18 05/24/18 [Vitamin D3] Cyanocobalamin (Vitamin B-12) 1,000 mcg PO DAILY 05/18/18 05/24/18 [Vitamin B-12] Gabapentin [Neurontin] 400 mg PO TID 05/18/18 05/24/18 L.acidoph,Paracasei, B.lactis 1 cap PO DAILY 05/18/18 05/24/18 [Probiotic] Magnesium Chloride/Calcium(Unknown) 1 tab PO DAILY 05/18/18 05/24/18 Metoprolol Tartrate [Lopressor] 25 mg PO BID 05/18/18 05/24/18 [place]-3 Fatty Acids/Fish Oil [Fish 1 cap PO TID 05/18/18 05/24/18 Oil 1,000 mg Softgel] Previous Rx's Medication Instructions Recorded Aspirin 325 mg PO DAILY #7 tab 05/19/18 Atorvastatin [Lipitor] 80 mg PO HS #30 tab 05/19/18 Nitroglycerin Sl Tabs [Nitrostat] 0.4 mg SUBLINGUAL Q5M PRN #20 tab 05/19/18 Allergies Allergy/AdvReac Type Severity Reaction Status Date / Time No Known Allergies Allergy Verified 05/24/18 21:55 Review of Systems ROS Statement: Those systems with pertinent positive or pertinent negative responses have been documented in the HPI. ROS Other: All systems not noted in ROS Statement are negative. Limitations: ROS unobtainable due to patients medical condition (Aphasia) Constitutional: Denies: fever, weakness Respiratory: Denies: cough, dyspnea Cardiovascular: Denies: chest pain, palpitations, syncope Gastrointestinal: Denies: abdominal pain, nausea, vomiting Musculoskeletal: Reports: arthralgia. Denies: back pain Skin: Denies: lesions Neurological: Reports: headache. Denies: weakness Past Medical History Past Medical History: CVA/TIA, Hyperlipidemia, Osteoarthritis (OA) Additional Past Medical History / Comment(s): 05/08/15/ ADMITTED FOR C/O CHEST PAIN W/RADIATION DOWN LT ARM. 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 MURMUR, STROKE 2013 AFFECTED LT EYE(SEES LIGHT/SHAPES, RT ARM/LEG AFFECTED, UP WITH 4 PRONG WALKER AND WEARS A BRACE, SPOUSE SIGNS THINGS FOR HER, PT NEEDS HELP CUTTING FOOD BUT CAN FEED SELF FAMILY STATED NO TROUBLE CHEWING OR SWALLOWING AND CAN USE A STRAW OR DRINK OUT OF CUP NORMALLY, KEEP QUESTIONS SIMPLE WHEN TAKING TO PT(YES/NO ANSWERS).DIVERTICULAR DISEASE PER COLONOSCOPY, HERNIATED L4-, ULCER 12 YEARS AGO. History of Any Multi-Drug Resistant Organisms: None Reported Past Surgical History: Joint Replacement, Tonsillectomy Additional Past Surgical History / Comment(s): laser repair of mvp, right knee replaced, tummy tuck, LT KNEE SCOPE, CARDIAC ABLATION FOR SVT,COLONOSCOPY, MORTONS NEUROMA REMOVED FROM FOOT, LT FOOT HAMMER TOE SX HAS PIN IN PLACE, LT ADRENAL GLAND/TUMOR REMOVED, RT HAND KNUCKLE SX; catract surgery 2018 Past Anesthesia/Blood Transfusion Reactions: No Reported Reaction Past Psychological History: Depression Smoking Status: Former smoker Past Alcohol Use History: None Reported Past Drug Use History: None Reported - Past Family History Father Family Medical History: Dementia, Myocardial Infarction ([place]) Additional Family Medical History / Comment(s): CABG Mother Family Medical History: Dementia, Diabetes Mellitus, Myocardial Infarction ([place]) Additional Family Medical History / Comment(s): CABG General Exam Limitations: altered mental status General appearance: alert, in no apparent distress Head exam: Present: other (Contusion right forehead area. No palpable deformity. Moderate tenderness.) Eye exam: Present: normal appearance. Absent: scleral icterus, conjunctival injection ENT exam: Present: normal oropharynx Neck exam: Present: normal inspection, other (Cervical collar) Respiratory exam: Present: normal lung sounds bilaterally, chest wall tenderness (Right ribs, mid axillary line.). Absent: respiratory distress, wheezes, rales, rhonchi, stridor Cardiovascular Exam: Present: regular rate, normal rhythm, normal heart sounds. Absent: systolic murmur, diastolic murmur, rubs, gallop GI/Abdominal exam: Present: soft. Absent: distended, tenderness, guarding, rebound, mass Extremities exam: Present: normal inspection, tenderness (Lateral aspect right femur). Absent: calf tenderness Back exam: Present: normal inspection. Absent: vertebral tenderness Neurological exam: Present: alert Psychiatric exam: Present: other (There is marked expressive aphasia, which the patient's states is her usual baseline.) Skin exam: Present: warm, dry, intact, normal color. Absent: rash Course Vital Signs 05/24/18 21:51 Temperature 97.5 F L Pulse Rate 69 Respiratory 18 Rate Blood Pressure 101/51 O2 Sat by Pulse 96 Oximetry Medical Decision Making - Lab Data Result diagrams: 05/24/18 22:30 05/24/18 22:30 Lab Results 05/24/18 05/24/18 Range/Units 22:30 22:30 WBC 7.3 (3.8-10.6) k/uL RBC 4.40 (3.80-5.40) m/uL Hgb 13.5 (11.4-16.0) gm/dL Hct 41.3 (34.0-46.0) % MCV 93.8 (80.0-100.0) fL MCH 30.7 (25.0-35.0) pg MCHC 32.8 (31.0-37.0) g/dL RDW 13.1 (11.5-15.5) % Plt Count 234 (150-450) k/uL Neutrophils % 65 % Lymphocytes % 25 % Monocytes % 6 % Eosinophils % 3 % Basophils % 1 % Neutrophils # 4.7 (1.3-7.7) k/uL Lymphocytes # 1.8 (1.0-4.8) k/uL Monocytes # 0.4 (0-1.0) k/uL Eosinophils # 0.2 (0-0.7) k/uL Basophils # 0.0 (0-0.2) k/uL Sodium 140 (137-145) mmol/L Potassium 4.2 (3.5-5.1) mmol/L Chloride 108 H (98-107) mmol/L Carbon Dioxide 27 (22-30) mmol/L Anion Gap 5 mmol/L BUN 19 H (7-17) mg/dL Creatinine 0.75 (0.52-1.04) mg/dL Est GFR (CKD-EPI)AfAm >90 (>60 ml/min/1.73 sqM) Est GFR (CKD-EPI)NonAf 85 (>60 ml/min/1.73 sqM) Glucose 100 H (74-99) mg/dL Calcium 9.6 (8.4-10.2) mg/dL Disposition Clinical Impression: Fall, Head injury Disposition: HOME SELF-CARE Condition: Fair Instructions (If sedation given, give patient instructions): Fall Prevention for Older Adults (ED), Head Injury (ED) Is patient prescribed a controlled substance at d/c from ED?: No Referrals: Pancho Diggs MD [Primary Care Provider] - 1-2 days
[2018-05-24 23:13] LABS: Basophils % (A) 1 %; Eosinophils # (A) 0.2 k/uL (0-0.7); Eosinophils % (A) 3 %; HCT 41.3 % (34.0-46.0); HGB 13.5 gm/dL (11.4-16.0); Lymphocytes # (A) 1.8 k/uL (1.0-4.8); Lymphocytes % (A) 25 %; MCH 30.7 pg (25.0-35.0); MCHC 32.8 g/dL (31.0-37.0); MCV 93.8 fL (80.0-100.0); Mean Platelet Volume 7.2; Monocytes # (A) 0.4 k/uL (0-1.0); Monocytes % (A) 6 %; Neutrophils # (A) 4.7 k/uL (1.3-7.7); Neutrophils % (A) 65 %; Platelet Count 234 k/uL (150-450); RDW 13.1 % (11.5-15.5); WBC 7.3 k/uL (3.8-10.6)
[2018-05-24 23:21] LABS: Anion Gap 5 mmol/L; Blood Urea Nitrogen 19 mg/dL (7-17); Calcium 9.6 mg/dL (8.4-10.2); Carbon Dioxide 27 mmol/L (22-30); Chloride 108 mmol/L (98-107); Glucose 100 mg/dL (74-99); Potassium 4.2 mmol/L (3.5-5.1); Sodium 140 mmol/L (137-145)
--- NOTE | 2018-05-24 23:31 | CT ---
EXAMINATION TYPE: CT brain rakesh avery DATE OF EXAM: 05/24/2018 COMPARISON: None HISTORY: fall CT DLP: 1362.1 mGycm Automated exposure control for dose reduction was used. TECHNIQUE: CT scan of the head and cervical spine are performed without contrast. FINDINGS: There is a large area of hypodensity in the left cerebral hemisphere related to old left middle cerebral artery infarct. There is enlargement of the left lateral ventricle. There is no midli ne shift. There is no sign of intracranial hemorrhage. The calvarium is intact. The cervical vertebra have normal alignment. There is narrowing of disc spaces from C4 to T1. There i s spurring of the endplates. Skull base is intact. Facet joints are intact. There is posterior endpla te spur formation at C5-6 with narrowing of the spinal canal to 6 mm. IMPRESSION: Old left middle cerebral artery distribution infarct. No acute intracranial abnormality. Spondylotic changes in the mid and lower cervical spine. No fracture. 6 mm cervical spinal stenosis a t C5-6.
--- NOTE | 2018-05-24 23:37 | XR ---
EXAMINATION TYPE: XR pelvis AP view DATE OF EXAM: 05/24/2018 COMPARISON: NONE HISTORY: Fall. Pain. TECHNIQUE: Single view FINDINGS: There is some narrowing and spurring at the right hip joint. I see no fracture nor dislocat ion. Pelvic ring is intact. Sacroiliac joints are intact. There is no evidence of femoral fracture. IMPRESSION: Osteoarthritis in the right hip joint. No fracture seen. Spondylotic changes in the lower cervical spine noted.
--- NOTE | 2018-05-24 23:39 | XR ---
EXAMINATION TYPE: XR ribs RT w pa chest xray DATE OF EXAM: 05/24/2018 COMPARISON: NONE HISTORY: Fall. Rib pain. TECHNIQUE: 5 views FINDINGS: Heart and mediastinum are within normal limits. Lungs are clear of infiltrate. There is no pleural effusion or pneumothorax. I see no rib fracture. IMPRESSION: Normal chest. Normal right rib exam.
--- NOTE | 2018-05-24 23:40 | XR ---
EXAMINATION TYPE: XR femur RT DATE OF EXAM: 05/24/2018 COMPARISON: NONE HISTORY: Pain TECHNIQUE: 4 views FINDINGS: There is narrowing of the right hip joint space with spur formation. There is a right knee prosthesis. Components appear in anatomic position. I see no fracture. IMPRESSION: Osteoarthritis in the right hip joint. No fracture seen.
[2018-05-25] MEDS ORDERED: MORPHINE SULFATE 4 MG/ML SYRINGE IV STA (00:16)
[2018-05-25 00:27] VITALS: BP 100/57; PULSE 68; RESP 16
== END 2018-05-25 01:18 | disposition home or self-care (01) ==
LOC: EC 21:48
DX: S00.83XA Contusion of other part of head, initial encounter (principal); M19.90 Unspecified osteoarthritis, unspecified site; F32.9 Major depressive disorder, single episode, unspecified; Z96.641 Presence of right artificial hip joint; Z86.73 Personal history of transient ischemic attack (TIA), and cerebral infarction without residual deficits; Z87.891 Personal history of nicotine dependence; Z79.82 Long term (current) use of aspirin; Z79.899 Other long term (current) drug therapy; W01.10XA Fall on same level from slipping, tripping and stumbling with subsequent striking against unspecified object, initial encounter; Y92.009 Unspecified place in unspecified non-institutional (private) residence as the place of occurrence of the external cause
CPT/HCPCS: 36415; 80048; 85025; 71101; 72170; 73552; 72125; 70450; 99284; 96374; L0120; J2270

== ENCOUNTER → 2018-08-06 | Outpatient (CLI) | payer MEDICARE, OTHER ==
--- NOTE | 2018-08-07 13:35 | MM ---
Reason for exam: screening (asymptomatic). Last mammogram was performed 2 years and 8 months ago. History: Patient is postmenopausal. Physical Findings: A clinical breast exam by your physician is recommended on an annual basis and results should be correlated with mammographic findings. MG Screening Mammo w CAD Bilateral CC and MLO view(s) were taken. Prior study comparison: November 30, 2015, bilateral MG diagnostic mammo w CAD PETE. April 06, 2013, mammogram. There are scattered fibroglandular densities. Benign calcifications in the left breast. No suspicious abnormality. No significant changes when compared with prior studies. ASSESSMENT: Benign, BI-RAD 2 RECOMMENDATION: Routine screening mammogram of both breasts in 1 year.
== END | disposition home or self-care (01) ==
LOC: RADMAMWWP 12:52
PROVIDERS: ATTEND Family Medicine
DX: Z12.31 Encounter for screening mammogram for malignant neoplasm of breast (principal)
CPT/HCPCS: 77067

== ENCOUNTER 2019-02-28 05:26 | Observation (INO) | payer MEDICARE, OTHER ==
[2019-02-28 05:47] LABS: Basophils # (A) 0.1 k/uL (0-0.2); Basophils % (A) 2 %; Eosinophils # (A) 0.2 k/uL (0-0.7); Eosinophils % (A) 5 %; HCT 38.7 % (34.0-46.0); HGB 12.7 gm/dL (11.4-16.0); Lymphocytes # (A) 1.7 k/uL (1.0-4.8); Lymphocytes % (A) 36 %; MCH 31.2 pg (25.0-35.0); MCHC 32.8 g/dL (31.0-37.0); MCV 95.2 fL (80.0-100.0); Mean Platelet Volume 7.1; Monocytes # (A) 0.3 k/uL (0-1.0); Monocytes % (A) 6 %; Neutrophils # (A) 2.3 k/uL (1.3-7.7); Neutrophils % (A) 50 %; Platelet Count 231 k/uL (150-450); RBC 4.06 m/uL (3.80-5.40); RDW 12.8 % (11.5-15.5); WBC 4.6 k/uL (3.8-10.6)
[2019-02-28 06:00] LABS: D-Dimer 0.45 mg/L FEU (<0.60); Partial Thromboplastin Time 24.9 sec (22.0-30.0); Prothrombin Time 10.4 sec (9.0-12.0)
[2019-02-28 06:01] LABS: ALT 26 U/L (9-52); AST 29 U/L (14-36); African American GFR (CKD) >90 (>60 ml/min/1.73 sqM); Albumin 3.6 g/dL (3.5-5.0); Alkaline Phosphatase 67 U/L (38-126); Blood Urea Nitrogen 15 mg/dL (7-17); Calcium 9.2 mg/dL (8.4-10.2); Carbon Dioxide 24 mmol/L (22-30); Glucose 97 mg/dL (74-99); Non-African American GFR(CKD) >90 (>60 ml/min/1.73 sqM); Potassium 4.3 mmol/L (3.5-5.1); Sodium 141 mmol/L (137-145); Total Bilirubin 0.5 mg/dL (0.2-1.3); Total Protein 6.2 g/dL (6.3-8.2)
[2019-02-28 06:09] LABS: Anion Gap 6 mmol/L; Chloride 111 mmol/L (98-107)
--- NOTE | 2019-02-28 06:17 | XR ---
EXAM: XR Chest, 2 Views CLINICAL HISTORY: ITS.REASON XR Reason: Chest Pain TECHNIQUE: Frontal and lateral views of the chest. COMPARISON: 08/07/2018 FINDINGS: Lungs: Diminished lung volumes. No definite focal consolidation. The pulmonary vas suture demonstrates no significant radiographic abnormality. Pleural space: Unremarkable. No pneumothorax. No large pleural effusion. Heart: Unremarkable. No cardiomegaly. Mediastinum: Unremarkable. No significant abnormality identified. The trachea is midline. Bones/joints: Unremarkable. Tubes, lines and devices: The extensive overlying EKG lead artifact on the frontal projection. IMPRESSION: Diminished lung volumes without focal consolidation or acute cardiopulmonary process identified.
--- NOTE | 2019-02-28 06:55 | ED ---
Chest Pain HPI - General Chief Complaint: Chest Pain Stated Complaint: Chest Pain Time Seen by Provider: 02/28/19 05:30 Source: family, EMS Mode of arrival: EMS Limitations: no limitations - History of Present Illness Initial Comments: Marsha is a 63 yo female with PMH of CVA in the past presents to the ED via EMS for evaluation of chest pain, woke her from sleep this morning, resolved with nitro en route with EMS. patient has no history of CAD, has history of afib with ablation >10 years ago, does not follow with cardiology. Patient is non smoker. MD Complaint: chest pain -: minutes(s) Onset: during rest Pain Location: substernal, left chest Pain Radiation: none Severity: moderate Quality: tightness Consistency: now resolved Improves With: nitroglycerin Worsens With: nothing Anginal Symptoms: dyspnea Treatments Prior to Arrival: aspirin, nitroglycerin - Related Data On Oral Contraceptives: No Home Medications Medication Instructions Recorded Confirmed Citalopram Hydrobromide [CeleXA] 40 mg PO HS 05/08/15 05/24/18 Dipyridamole-Aspirin 200-25 mg 1 cap PO BID 05/08/15 05/24/18 [Aggrenox 25MG -200MG] Multivitamins, Thera [Multivitamin 1 tab PO DAILY 05/08/15 05/24/18 (formulary)] Vitamin E (Dl,Tocopheryl Acet) 400 unit PO DAILY 05/08/15 05/24/18 [Vitamin E] Baclofen [Lioresal] 20 mg PO TID 05/18/18 05/24/18 Calcium/Magnesium/Zinc 1 tab PO DAILY 05/18/18 05/24/18 [Jmrdfdd-Gqipyfrsz-Necr Tablet] Cholecalciferol (Vitamin D3) 2,000 unit PO TID 05/18/18 05/24/18 [Vitamin D3] Cyanocobalamin (Vitamin B-12) 1,000 mcg PO DAILY 05/18/18 05/24/18 [Vitamin B-12] Gabapentin [Neurontin] 400 mg PO TID 05/18/18 05/24/18 L.acidoph,Paracasei, B.lactis 1 cap PO DAILY 05/18/18 05/24/18 [Probiotic] Magnesium Chloride/Calcium(Unknown) 1 tab PO DAILY 05/18/18 05/24/18 Metoprolol Tartrate [Lopressor] 25 mg PO BID 05/18/18 05/24/18 [place]-3 Fatty Acids/Fish Oil [Fish 1 cap PO TID 05/18/18 05/24/18 Oil 1,000 mg Softgel] Previous Rx's Medication Instructions Recorded Aspirin 325 mg PO DAILY #7 tab 05/19/18 Atorvastatin [Lipitor] 80 mg PO HS #30 tab 05/19/18 Nitroglycerin Sl Tabs [Nitrostat] 0.4 mg SUBLINGUAL Q5M PRN #20 tab 05/19/18 Allergies Allergy/AdvReac Type Severity Reaction Status Date / Time No Known Allergies Allergy Verified 02/28/19 05:35 Review of Systems ROS Statement: Those systems with pertinent positive or pertinent negative responses have been documented in the HPI. ROS Other: All systems not noted in ROS Statement are negative. EKG Findings - EKG Comments: EKG Findings:: EKG obtained due to complaint of chest pain - EKG obtained at 5:29 - rate 58, rhythm sinus garry, RBBB, KS 176, QRS 130, QTc 457, no acute ST elevations or depressions, no ischemia or infarction. Past Medical History Past Medical History: CVA/TIA, Hyperlipidemia, Osteoarthritis (OA) Additional Past Medical History / Comment(s): 05/08/15/ ADMITTED FOR C/O CHEST PAIN W/RADIATION DOWN LT ARM. 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 MURMUR, STROKE 2014 AFFECTED LT EYE(SEES LIGHT/SHAPES, RT ARM/LEG AFFECTED, UP WITH 4 PRONG WALKER AND WEARS A BRACE, SPOUSE SIGNS THINGS FOR HER,PT NEEDS HELP CUTTING FOOD BUT CAN FEED SELF FAMILY STATED NO TROUBLE CHEWING OR SWALLOWING AND CAN USE A STRAW OR DRINK OUT OF CUP NORMALLY, KEEP QUESTIONS SIMPLE WHEN TAKING TO PT(YES/NO ANSWERS).DIVERTICULAR DISEASE PER COLONOSCOPY, HERNIATED L4-, ULCER 12 YEARS AGO. History of Any Multi-Drug Resistant Organisms: None Reported Past Surgical History: Joint Replacement, Tonsillectomy Additional Past Surgical History / Comment(s): laser repair of mvp, right knee replaced, tummy tuck, LT KNEE SCOPE, CARDIAC ABLATION FOR SVT,COLONOSCOPY, MORTONS NEUROMA REMOVED FROM FOOT, LT FOOT HAMMER TOE SX HAS PIN IN PLACE, LT ADRENAL GLAND/TUMOR REMOVED, RT HAND KNUCKLE SX; catract surgery 2018 Past Anesthesia/Blood Transfusion Reactions: No Reported Reaction Past Psychological History: Depression Smoking Status: Former smoker Past Alcohol Use History: None Reported Past Drug Use History: None Reported - Past Family History Father Family Medical History: Dementia, Myocardial Infarction ([place]) Additional Family Medical History / Comment(s): CABG Mother Family Medical History: Dementia, Diabetes Mellitus, Myocardial Infarction ([place]) Additional Family Medical History / Comment(s): CABG General Exam Limitations: no limitations General appearance: alert, in no apparent distress Head exam: Present: atraumatic, normocephalic Eye exam: Present: normal appearance ENT exam: Present: normal exam Neck exam: Present: normal inspection Respiratory exam: Present: normal lung sounds bilaterally Cardiovascular Exam: Present: bradycardia, systolic murmur GI/Abdominal exam: Present: soft. Absent: distended Rectal exam: Present: deferred Extremities exam: Present: normal inspection, full ROM Neurological exam: Present: alert, oriented X3, other (right sided weakness secondary to previous stroke) Psychiatric exam: Present: normal affect, normal mood Course Vital Signs 02/28/19 05:28 Temperature 98.3 F Pulse Rate 58 L Respiratory 18 Rate Blood Pressure 96/64 O2 Sat by Pulse 95 Oximetry Chest Pain MDM - MDM 63 yo female with PMH of CVA, no known CAD presenting with CP that resolved with nitro/ASA EKG non-ischemic Labs unremarkable Will plan to admit for serial Trop and evaluation by cardiology. - Wells Criteria Clinical Symptoms of DVT: (0) No No Alternative Diagnosis: (0) No Immobilization of Surgery in Previous 4 Weeks: (0) No Previous DVT/PE: (0) No Hemoptysis: (0) No Malignancy: (0) No - LALY Score Age > 65: (0) No 3 or more CAD Risk Factors: (0) No Known CAD with more than 50% Stenosis: (0) No Aspirin use within the Past 7 Days: (0) No Elevated Cardiac Markers: (0) No ST Deviation Greater than 0.5mm: (0) No Disposition Clinical Impression: Chest pain Disposition: ADMITTED IP TO THIS [facility] Condition: Stable Referrals: Pancho Diggs MD [Primary Care Provider] - 1-2 days
[2019-02-28] MEDS ORDERED: NITROGLYCERIN SL TABS 0.4 MG TAB SUBLINGUAL PRN (07:13)
[2019-02-28 07:59] VITALS: BMI 31.5
[2019-02-28] MEDS: GABAPENTIN 400 MG CAP PO SCH ×3 (08:42→21:02)
[2019-02-28] MEDS: METOPROLOL TARTRATE 25 MG TAB PO SCH ×2 (08:42→21:02)
[2019-02-28] MEDS: BACLOFEN 10 MG TAB PO SCH ×3 (08:42→21:01)
[2019-02-28] MEDS ORDERED: NALOXONE 0.4 MG/ML 1 ML VIAL IV PRN (08:47)
[2019-02-28] MEDS ORDERED: ONDANSETRON 4 MG/2 ML VIAL IVP PRN (08:47)
[2019-02-28] MEDS ORDERED: ACETAMINOPHEN TAB 325 MG TAB PO PRN (08:47)
[2019-02-28] MEDS ORDERED: traMADol 50 MG TAB PO PRN (08:47)
--- NOTE | 2019-02-28 08:49 | P.HPIM ---
History of Present Illness H&P Date: 02/28/19 Chief Complaint: chest pain Patient is a 63-year-old female past medical history of cerebrovascular accident in 2013 resulting in right sided hemiparesis with dysarthria, bicuspid aortic valve, atrial fibrillation status post ablation, arthritis, and prior gastric ulcer who presented to the emergency department with complaints of chest pain. In the ER she underwent an extensive evaluation. Her initial vital signs were within normal limits with a heart rate of 58. Initial laboratory analysis was unremarkable with a negative troponin. EKG is reviewed by myself revealed sinus bradycardia at a rate of 58 with a right-sided bundle branch block that is unchanged from April 2018. She had taken 2 aspirin prior to coming to the emergency department. She did receive nitroglycerin in route via EMS and her chest pain improved. She was subsequently admitted to observation for further monitoring. Her last stress test was in April 2018 was a Lexiscan which showed possible prior infarct but no reversible ischemia. She follows with Dr. Laureano as her director of community life and Dr. Diggs as her primary care physician. She is unsure of any family history of Myocardial infarction but this is recorded in prior charts. Cath in 2015 which showed 50% proximal circumflex lesion Patient seen and examined at bedside with present. She is only able to answer yes or no questions. This morning she awoke and needed she is the restroom. Her took her to the restroom in her wheelchair and when she returned to bed she started having left-sided chest pain. The pain stayed on the left side of her chest and did not radiate. She denies any associated priyank rtness of breath, pain into her left arm, unusual numbness or tingling, nausea, lightheadedness, palpitations, or diaphoresis. Her does say she ate more for dinner than typical last night. Any recent cough, cold, fever, flu and has otherwise been at her baseline. Her chest pain lasted approximately 40 minutes. Her had her chew 2 full dose Aspirin. Chest pain abated when she received nitro. EMS in route to the hospital. Review of Systems Pertinent positives and negatives as discussed in HPI, a complete review of systems was performed and all other systems are negative. 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(SEES LIGHT/SHAPES, Right sided hemiparesis requiring AFO fo root drop and dysarthria, KEEP QUESTIONS SIMPLE WHEN TAKING TO PT(YES/NO ANSWERS).DIVERTICULAR DISEASE PER COLONOSCOPY, JIMMY IATED L4-, Gastric Ulcer, SVT s/p ablation , Descending aortic aneurysm History of Any Multi-Drug Resistant Organisms: None Reported Past Surgical History: Joint Replacement, Tonsillectomy Additional Past Surgical History / Comment(s): laser repair of mvp, right knee replaced, tummy tuck, LT KNEE SCOPE, CARDIAC ABLATION FOR SVT,COLONOSCOPY, MORTONS NEUROMA REMOVED FROM FOOT, LT FOOT HAMMER TOE SX HAS PIN IN PLACE, LT ADRENAL GLAND/TUMOR REMOVED, RT HAND KNUCKLE SX; catract surgery 2017 Past Anesthesia/Blood Transfusion Reactions: No Reported Reaction Past Psychological History: Depression Additional Psychological History / Comment(s): MAINTAINED ON HER MEDICATION Smoking Status: Former smoker Past Alcohol Use History: None Reported Additional Past Alcohol Use History / Comment(s): QUIT SMOKING 1996 Past Drug Use History: None Reported Additional History: Per only walks for very short distances and she uses a right AFO with a 4 prong cane but for most distances she uses a wheelchair, can answer yes/no questions secondary to dysarthria from prior stroke. - Past Family History Father Family Medical History: Dementia, Myocardial Infarction ([place]) Additional Family Medical History / Comment(s): CABG Mother Family Medical History: Dementia, Diabetes Mellitus, Myocardial Infarction ([place]) Additional Family Medical History / Comment(s): CABG Medications and Allergies Home Medications Medication Instructions Recorded Confirmed Type Citalopram Hydrobromide [CeleXA] 40 mg PO HS 05/08/15 02/28/19 History Dipyridamole-Aspirin 200-25 mg 1 cap PO BID 05/08/15 02/28/19 History [Aggrenox 25MG -200MG] Multivitamins, Thera [Multivitamin 1 tab PO DAILY 05/08/15 02/28/19 History (formulary)] Vitamin E (Dl,Tocopheryl Acet) 400 unit PO DAILY 05/08/15 02/28/19 History [Vitamin E] Baclofen [Lioresal] 20 mg PO TID 05/18/18 02/28/19 History Cholecalciferol (Vitamin D3) 2,000 unit PO BID 05/18/18 02/28/19 History [Vitamin D3] Cyanocobalamin (Vitamin B-12) 1,000 mcg PO DAILY 05/18/18 02/28/19 History [Vitamin B-12] Gabapentin [Neurontin] 400 mg PO TID 05/18/18 02/28/19 History L.acidoph,Paracasei, B.lactis 1 cap PO DAILY 05/18/18 02/28/19 History [Probiotic] Metoprolol Tartrate [Lopressor] 25 mg PO BID 05/18/18 02/28/19 History Atorvastatin Calcium [Lipitor] 40 mg PO HS 02/28/19 02/28/19 History Calcium Citrate/Vitamin D/Magnesium 1 tab PO DAILY 02/28/19 02/28/19 History Fish Oil/Dha/Epa [Fish Oil 1,200 1 cap PO TID 02/28/19 02/28/19 History mg Fish Oil] Slow-Mag/Calcium 1 tab PO DAILY 02/28/19 02/28/19 History Allergies Allergy/AdvReac Type Severity Reaction Status Date / Time No Known Allergies Allergy Verified 02/28/19 07:25 Physical Exam Osteopathic Statement: *. No significant issues noted on an osteopathic structural exam other than those noted in the History and Physical/Consult. Vitals: Vital Signs Temp Pulse Pulse Resp BP BP Pulse Ox 02/28/19 08:00 97.6 F 60 18 103/65 96 02/28/19 07:33 98.3 F 51 L 16 93/49 94 L 02/28/19 07:29 51 L 16 93/49 94 L 02/28/19 07:00 51 L 16 93/49 94 L 02/28/19 06:34 51 L 20 95/51 97 02/28/19 06:30 54 L 13 92/56 94 L 02/28/19 06:00 53 L 15 94 L 02/28/19 05:30 94 L 02/28/19 05:28 98.3 F 58 L 18 96/64 95 Intake and Output 02/27/19 02/28/19 02/28/19 22:59 06:59 14:59 Other: # Voids 1 Weight 80.739 kg General: non toxic, no distress, appears at stated age, normal weight Derm: no unusual rashes/lesions no unusual ecchymoses, warm, dry Head: atraumatic, normocephalic, symmetric Eyes: EOMI, no lid lag, anicteric sclera, pupils equal round reactive to light ENT: Nose and ears atraumatic, no thrush, no pharyngeal erythema Neck: No thyromegaly, no cervical lymphadenopathy, trachea midline, supple Mouth: no lip lesion, mucus membranes moist Cardiovascular: S1S2 reg, no murmur, positive posterior tibial pulse bilateral, no edema, capillary refill less than 2 seconds Lungs: CTA bilateral, no rhonchi, no rales , no accessory muscle use Abdominal: soft, nontender to palpation, no guarding, no appreciable organomegaly, normal bowel sounds Ext: + Muscle atrophy of right intrinsic hand muscles, right forearm and left hip, muscle strength 5 out of 5 in left upper extremity and left lower extremity, muscle strength is 0 out of 5 in right upper extremity and right lower extremity, no contractures, Neuro: dysarthria, light touch intact all 4 extremities, finger to nose within normal limits, Psych: Alert, oriented, appropriate affect Results CBC & Chem 7: 02/28/19 05:38 02/28/19 05:38 Labs: Abnormal Lab Results - Last 24 Hours (Table) 02/28/19 Range/Units 05:38 Chloride 111 H (98-107) mmol/L Total Protein 6.2 L (6.3-8.2) g/dL Chest x-ray: report reviewed Thrombosis Risk Factor Assmnt - DVT/VTE Prophylaxis DVT/VTE Prophylaxis: Pharmacologic Prophylaxis ordered - Choose All That Apply Any of the Below Risk Factors Present?: Yes Each Factor Represents 1 point: Obesity (BMI >25) Other Risk Factors: Yes Each Risk Factor Represents 2 Points: Age 61-74 years Thrombosis Risk Factor Assessment Total Risk Factor Score: 3 Thrombosis Risk Factor Assessment Level: Moderate Risk Assessment and Plan Assessment: Chest pain -Aspirin, Lipitor, beta dana -Cycle troponins -Cardiology consultation -Had a Lexiscan stress test 05/19/18 which showed no signs of reversible ischemia but did show possible prior infarction. History of cardiac catheterization in 2015 with 50% lesion in the circum flex -NPO until seen by cardio History of CVA with residual right-sided hemiparesis and dysarthria -Aspirin, Lipitor, Aggrenox -Neurontin and baclofen secondary to right-sided hemiparesis Dyslipidemia -Statin therapy History of SVT -Status post ablation The patient is placed in observation with an anticipated less than 2 midnight stay for evaluation of chest pain. Surrogate decision-maker: CODE STATUS: DNR DVT prophylaxis: lovenox Anticipated discharge date: in AM Anticipated discharge place: Home
[2019-02-28] MEDS ORDERED: NON FORMULARY DRUG (Fish Oil/Dha/Epa [Fish Oil 1,200 Mg Fish Oil] 1 CAP) PO SCH (09:00)
[2019-02-28] MEDS: CHOLECALCIFEROL 1,000 UNIT TAB PO SCH ×2 (10:34→21:01)
[2019-02-28] MEDS: CYANOCOBALAMIN 500 MCG TAB PO SCH (10:34)
[2019-02-28] MEDS: MAGNESIUM OXIDE 400 MG TAB PO SCH (10:34)
[2019-02-28] MEDS: CALCIUM CARB-VIT D 500MG-200UN 1 EACH TAB PO SCH (10:34)
[2019-02-28] MEDS: LACTOBACILLUS ACIDOPH & BULGAR 1 EACH PACKET PO SCH (10:35)
[2019-02-28] MEDS: VITAMIN E (DL,TOCOPHERYL ACET) 400 UNIT CAP PO SCH (10:35)
[2019-02-28] MEDS: MULTIVITAMINS, THERA 1 EACH TAB PO SCH (10:35)
--- NOTE | 2019-02-28 12:48 | CONS ---
CONSULTATION CHIEF COMPLAINT: Chest pain. This is a 63-year-old lady with history of CVA with right hemiparesis, coronary artery disease and dyslipidemia who presented to the hospital having had an episode of chest discomfort. The patient describes a sharp right-sided chest discomfort, mild intensity, radiated to her back without any diaphoresis. This happened in the early hours of the morning. The patient was put to sleep by her . She got up, went to the restroom and subsequently complained of this chest pain. The patient has expressive aphasic and can only answer in a yes or no and I got the information from her . The patient had a similar episode of chest pain at the beginning of the year. Underwent a stress test that was negative for ischemia. She had an echocardiogram at that time that showed normal LV systolic function with mild aortic stenosis. EKG on this admission reveals sinus rhythm, sinus bradycardia with right bundle branch block. One set of troponin is negative. Potassium is normal at 4.3. PAST MEDICAL HISTORY: Significant for CVA with right-sided hemiplegia and expressive aphasia. CURRENT MEDICATIONS: Include Slow-Mag, metoprolol 25 b.i.d., Aggrenox, Celexa, and aspirin. ALLERGIES: No known drug allergies. FAMILY HISTORY: Negative for premature coronary artery disease. SOCIAL HISTORY: Negative for smoking, EtOH abuse or drug abuse. REVIEW OF SYSTEMS: HEENT is unremarkable. Cardiac as described above. RESPIRATORY: Negative. GI negative. Genitourinary negative. Allergy/Immunology: Negative. Skin negative. MUSCULOSKELETAL: Significant for right-sided CVA. Rest of the system review is not relevant. PHYSICAL EXAMINATION: On exam, patient is comfortable at rest. Vital signs are stable. There is no jugular venous distention. Carotid upstroke is diminished. There is no bruit. Chest exam reveals good air entry bilaterally. Heart exam reveals first and second heart sounds and early diastolic murmur in the aortic area and an ejection systolic murmur. Abdomen is soft. Exam of extremities did not reveal any edema. Peripheral pulses are felt. EKG is as described above. One set of troponin is as described above. ASSESSMENT: 1. Precordial chest pain. 2. History of cerebrovascular accident with right hemiplegia. 3. Aortic regurgitation. 4. Aortic stenosis. PLAN: We will obtain serial troponins to rule out myocardial infarction and if she remains symptom free, we may be able to discharge her home and consider an outpatient stress test through Dr. Camilo Laureano, the patient had a negative stress test at the beginning of the year and her symptoms are very atypical. However, if she has further episodes of chest discomfort or the troponins are elevated, we may consider a stress test while she is still here. Thank you for allowing us to participate in the care of this pleasant lady. MMRENA / MADELAINE: [id number] /
[2019-02-28] MEDS ORDERED: ATORVASTATIN 40 MG TAB PO SCH (21:00)
[2019-02-28] MEDS ORDERED: CITALOPRAM HYDROBROMIDE 20 MG TAB PO SCH (21:00)
[2019-02-28] MEDS: DIPYRIDAMOLE-ASPIRIN 200-25 MG 1 EACH CPMP.12HR PO SCH (21:02)
[2019-03-01 00:52] LABS: Cholesterol 140 mg/dL (<200); HDL Cholesterol 49 mg/dL (40-60); LDL Cholesterol,Calculated 72 mg/dL (0-99); Triglycerides 97 mg/dL (<150)
[2019-03-01 08:17] VITALS: BP 100/64; PULSE 59; RESP 18; TEMP 97.8
[2019-03-01] MEDS: BACLOFEN 10 MG TAB PO SCH (08:29)
[2019-03-01] MEDS: GABAPENTIN 400 MG CAP PO SCH (08:29)
[2019-03-01] MEDS: CHOLECALCIFEROL 1,000 UNIT TAB PO SCH (08:29)
[2019-03-01] MEDS: CYANOCOBALAMIN 500 MCG TAB PO SCH (08:29)
[2019-03-01] MEDS: MAGNESIUM OXIDE 400 MG TAB PO SCH (08:29)
[2019-03-01] MEDS: METOPROLOL TARTRATE 25 MG TAB PO SCH (08:29)
[2019-03-01] MEDS: MULTIVITAMINS, THERA 1 EACH TAB PO SCH (08:29)
[2019-03-01] MEDS: CALCIUM CARB-VIT D 500MG-200UN 1 EACH TAB PO SCH (08:29)
[2019-03-01] MEDS: LACTOBACILLUS ACIDOPH & BULGAR 1 EACH PACKET PO SCH (08:30)
[2019-03-01] MEDS: DIPYRIDAMOLE-ASPIRIN 200-25 MG 1 EACH CPMP.12HR PO SCH (08:37)
[2019-03-01] MEDS: VITAMIN E (DL,TOCOPHERYL ACET) 400 UNIT CAP PO SCH (08:37)
[2019-03-01] MEDS ORDERED: CAFFEINE CITRATE 60 MG/3 ML VIAL IV PRN ×2 (09:00→09:23)
[2019-03-01] MEDS ORDERED: AMINOPHYLLINE 500 MG/20 ML VIAL IV PRN ×2 (09:00→09:23)
[2019-03-01] MEDS ORDERED: ASPIRIN 325 MG TAB PO SCH (09:00)
[2019-03-01] MEDS ORDERED: DIPYRIDAMOLE 46 MG in SODIUM CHLORIDE 0.9% 40.8 ML IV ONE ×2 (09:00→09:23)
--- NOTE | 2019-03-01 11:35 | ECHOF ---
Referral Reason:chest pain MEASUREMENTS -------- HEIGHT: 160.0 cm WEIGHT: 80.7 kg BP: 100/50 IVSd: 1.6 cm (0.6 - 1.1) LVIDd: 3.9 cm (3.9 - 5.3) LVPWd: 1.4 cm (0.6 - 1.1) IVSs: 1.7 cm LVIDs: 1.8 cm LVPWs: 2.0 cm RVIDd: 4.2 cm (< 3.3) LAESV Index (A-L): 22.87 ml/m Ao Diam: 3.5 cm (2.0 - 3.7) AV Cusp: 0.8 cm (1.5 - 2.6) EPSS: 1.0 cm MV E Mehdi: 0.79 m/s MV DecT: 238 ms MV A Mehdi: 0.62 m/s MV E/A Ratio: 1.26 AV maxP.26 mmHg AV meanP.40 mmHg RAP: 5.00 mmHg RVSP: 26.84 mmHg MV EF SLOPE: 54.11 mm/s (70 - 150) MV EXCURSION: 11.82 mm (> 18.000) FINDINGS -------- Sinus rhythm. This was a technically adequate study. The left ventricular size is normal. There is moderate concentric left ventricular hypertrophy. O verall left ventricular systolic function is normal with, an EF between 55 - 60 %. The diastolic fi lling pattern is normal for the age of the patient 13.25. The right ventricle is mild to moderately enlarged. Normal LA size by volume 22+/-6 ml/m2. The right atrium is mildly enlarged. Interatrial and interventricular septum intact. There is moderate to severe aortic valve sclerosis. There is [id number] aortic regurgitation. Moderate aortic stenosis with peak/mean pressure gradient of 43.26mmHg / 29.40mmHg, the aortic ave ve area by continuity equation is 1.4cm. Peak/mean gradient across the Aortic Valve is 43.26mmHg / 29.40mmHg. Aortic root dilated Mild mitral annular calcification present. No mitral regurgitation. Mild tricuspid regurgitation present. There is no evidence of pulmonary hypertension. The right v entricular systolic pressure, as measured by Doppler, is 26.84mmHg. The pulmonic valve was not well visualized. The aortic root and ascending aorta are dilated measuring up to (3.9) cm. There is no pericardial effusion. CONCLUSIONS -------- 1. Sinus rhythm. 2. This was a technically adequate study. 3. The left ventricular size is normal. 4. There is moderate concentric left ventricular hypertrophy. 5. Overall left ventricular systolic function is normal with, an EF between 55 - 60 %. 6. The diastolic filling pattern is normal for the age of the patient 13.25 7. The right ventricle is mild to moderately enlarged. 8. Normal LA size by volume 22+/-6 ml/m2. 9. The right atrium is mildly enlarged. 10. Interatrial and interventricular septum intact. 11. There is moderate to severe aortic valve sclerosis. 12. There is [id number] aortic regurgitation. 13. Moderate aortic stenosis with peak/mean pressure gradient of 43.26mmHg / 29.40mmHg, the aortic va lve area by continuity equation is 1.4cm. 14. Peak/mean gradient across the Aortic Valve is 43.26mmHg / 29.40mmHg. 15. Aortic root dilated 16. Mild mitral annular calcification present. 17. No mitral regurgitation. 18. Mild tricuspid regurgitation present. 19. There is no evidence of pulmonary hypertension. 20. The right ventricular systolic pressure, as measured by Doppler, is 26.84mmHg. 21. The pulmonic valve was not well visualized. 22. The aortic root and ascending aorta are dilated measuring up to (3.9) cm. 23. There is no pericardial effusion. RESOURCE SPECIALIST: Latrice Yeung [facility]
--- NOTE | 2019-03-01 12:30 | NM ---
EXAMINATION TYPE: NM stress persantine cardiolit DATE OF EXAM: 03/01/2019 COMPARISON: Jina dated 05/19/2018 HISTORY: Chest pain TECHNIQUE: After the intravenous administration of 9.7 mCi Tc 99m Sestamibi - Cardiolite resting SPE CT images acquired 60 minutes post injection. The patient received 46 mg Persantine, 25.2 mCi Tc 99m Sestamibi - Stress images obtained 45 minutes post injection FINDINGS: Review of stress and rest SPECT images demonstrates no reversible perfusion abnormality. Anterior wal l fixed defect is redemonstrated as seen on the prior of 05/19/2018 from prior infarct. Gated analysis shows focal abnormal wall motion in the inferior wall with an estimated left ventricular ejection fr action of 68 %. TID is calculated at 0.94, within normal limits IMPRESSION: 1. No scintigraphic evidence for reversible ischemia. 2. Redemonstration of a moderate fixed old infarct of the inferior left ventricular wall as seen on t he prior of 05/19/2018.
--- NOTE | 2019-03-01 14:13 | P.DS ---
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 In the ER she underwent an extensive evaluation. Her initial vital signs were within normal limits with a heart rate of 58. Initial laboratory analysis was unremarkable with a negative troponin. EKG is reviewed by myself revealed sinus bradycardia at a rate of 58 with a right-sided bundle branch block that is unchanged from April 2018. She had taken 2 aspirin prior to coming to the emergency department. She did receive nitroglycerin in route via EMS and her chest pain improved. She was subsequently admitted to observation for further monitoring. Troponin remained negative. EKG unchanged. She underwent her Lexiscan stress test on the morning of 03/01 which showed an old moderate fixed defect with no evidence of reversible ischemia. Echocardiogram showed an ejection fraction 55-60% with moderate LVH, moderate to severe aortic sclerosis, and moderate aortic stenosis. She is determined stable for discharge. She'll follow up with her PCP and Dr. Laureano in 1-2 weeks. Medications were not changed on discharge. Patient seen and examined at bedside. States that she is feeling okay. No recurrent chest pain. and family present at bedside. All questions answered. Vital signs reviewed and stable. General: non toxic, no distress, appears at stated age Derm: warm, dry Head: atraumatic, normocephalic, symmetric Cardiovascular: S1S2 reg, no murmur, positive posterior tibial pulse bilateral, Lungs: CTA bilateral, no rhonchi, no rales , no accessory muscle use Ext: no gross muscle atrophy, no edema, no contractures Psych: awake, appropriate affect A total of 25 minutes of time were spent preparing this complex discharge summary . Patient Condition at Discharge: Stable Plan - Discharge Summary New Discharge Prescriptions: Continue Citalopram Hydrobromide [CeleXA] 40 mg PO HS Dipyridamole-Aspirin 200-25 mg [Aggrenox 25MG -200MG] 1 cap PO BID Vitamin E (Dl,Tocopheryl Acet) [Vitamin E] 400 unit PO DAILY Multivitamins, Thera [Multivitamin (formulary)] 1 tab PO DAILY Cyanocobalamin (Vitamin B-12) [Vitamin B-12] 1,000 mcg PO DAILY Cholecalciferol (Vitamin D3) [Vitamin D3] 2,000 unit PO BID Baclofen [Lioresal] 20 mg PO TID Metoprolol Tartrate [Lopressor] 25 mg PO BID Gabapentin [Neurontin] 400 mg PO TID L.acidoph,Paracasei, B.lactis [Probiotic] 1 cap PO DAILY Atorvastatin Calcium [Lipitor] 40 mg PO HS Fish Oil/Dha/Epa [Fish Oil 1,200 mg Fish Oil] 1 cap PO TID Calcium Citrate/Vitamin D/Magnesium 1 tab PO DAILY Slow-Mag/Calcium 1 tab PO DAILY Discharge Medication List Citalopram Hydrobromide [CeleXA] 40 mg PO HS 05/08/15 [History] Dipyridamole-Aspirin 200-25 mg [Aggrenox 25MG -200MG] 1 cap PO BID 05/08/15 [History] Multivitamins, Thera [Multivitamin (formulary)] 1 tab PO DAILY 05/08/15 [History] Vitamin E (Dl,Tocopheryl Acet) [Vitamin E] 400 unit PO DAILY 05/08/15 [History] Baclofen [Lioresal] 20 mg PO TID 05/18/18 [History] Cholecalciferol (Vitamin D3) [Vitamin D3] 2,000 unit PO BID 05/18/18 [History] Cyanocobalamin (Vitamin B-12) [Vitamin B-12] 1,000 mcg PO DAILY 05/18/18 [History] Gabapentin [Neurontin] 400 mg PO TID 05/18/18 [History] L.acidoph,Paracasei, B.lactis [Probiotic] 1 cap PO DAILY 05/18/18 [History] Metoprolol Tartrate [Lopressor] 25 mg PO BID 05/18/18 [History] Atorvastatin Calcium [Lipitor] 40 mg PO HS 02/28/19 [History] Calcium Citrate/Vitamin D/Magnesium 1 tab PO DAILY 02/28/19 [History] Fish Oil/Dha/Epa [Fish Oil 1,200 mg Fish Oil] 1 cap PO TID 02/28/19 [History] Slow-Mag/Calcium 1 tab PO DAILY 02/28/19 [History] Follow up Appointment(s)/Referral(s): Neel Laureano MD [STAFF PHYSICIAN] - 03/15/19 3:00 pm (At [facility] Pancho Diggs MD [Primary Care Provider] - 1-2 days Patient Instructions/Handouts: Chest Pain (DC), Indigestion (ED) Activity/Diet/Wound Care/Special Instructions: Activity: as tolerated Diet: heart healthy
--- NOTE | 2019-03-01 14:58 | P.STRESS ---
- Stress Test Note Stress Test Results/Findings: Exam Performed: NM stress persantine cardiolite Exam Date: 03/01/19 Reason for Exam: CHEST PAIN Height: 5 ft 3 in Weight: 80.739 kg Protocol: PERSANTINE Stage: NA Duration of Exercise: NA Resting Heart Rate: 54 Resting Blood Pressure: 93/66 Maximum Achieved Heart Rate: 62 Maximum Achieved Blood Pressure: 112/45 85% PMHR: NA 100% PMHR: NA METS: NA Technologist Comment: Stress Test Results/Findings: Persantine cardio lyte stress test Baseline heart rate 54 beats a minute Baseline blood pressure 9306 6. His mercury Underlying sinus rhythm right bundle branch block pattern normal axis Impression and received Persantine infusion per protocol Visit drop in her blood pressure 74 mmHg systolic and she was symptomatic with this. AV block was also noted AV node Wenckebach block and intermittent 1 AV block which gradually resolved after reversal There was no clear-cut ECG evidence for ischemia Nuclear portion of the stress will be reported separately Consider long-term ECG monitoring to look for spontaneous episodes of AV block and bradycardia
[2019-03-01] MEDS ORDERED: ATORVASTATIN 80 MG TAB PO SCH (21:00)
--- NOTE | 2019-03-02 09:38 | P.PN ---
Subjective This is a pleasant 63-year-old female past medical history significant for coronary artery disease, CVA with expressive aphasia, bicuspid aortic valve, dyslipidemia and hypertension. She follows in the office with Dr. Laureano. She is seen and examined resting comfortably in bed in no acute distress. She denies any further symptoms of chest discomfort. She underwent a persantine stress test earlier today that was negative for stress induced ischemia. During the persantine infusion she went into a second degree Type I AV block causing h ypotension and dizziness. IV fluids were given and her blood pressure and symptoms improved. Heart block lasted around 15 minutes and returned to NSR spontaneously. Echocardiogram obtained reveals preserved LV systolic function with ejection fraction 55-60%, normal diastolic filling pattern, mild to moderate aortic valve sclerosis, mild to moderate aortic regurgitation, moderate aortic stenosis with a mean gradient across the valve of 29.4 mmHg, dilated aortic root measuring 3.9 cm. Laboratory data reviewed, cardiac enzymes negative x3. Blood pressure 100/64 heart rate 59 afebrile and maintaining oxygen saturation on room air GENERAL: Well-appearing, well-nourished and in no acute distress. NECK: Supple without JVD or thyromegaly. LUNGS: Breath sounds clear to auscultation bilaterally. Respiration equal and unlabored. No wheezes, rales or rhonchi. HEART: Regular rate and rhythm with systolic ejection murmur at the base, no rubs or gallops. S1 and S2 heard. EXTREMITIES: Normal range of motion, no edema. No clubbing or cyanosis. Peripheral pulses intact. ASSESSMENT Chest pain, atypical for angina. An acute coronary event has been ruled out. Second degree AV block, Mobitz I Coronary artery disease, 50% proximal circumflex lesion with normal FFR 2016 Hypertension Dyslipidemia CVA Aortic stenosis with bicuspid aortic valve PLAN Heart rhythm has returned to NSR spontaneously. Continues to maintain sinus mechanism. No evidence of reversibility on stress test in circumflex distribution. Follow up with Dr. Laureano on discharge. Nurse Practitioner note has been reviewed, I agree with a documented findings and plan of care. Patient was seen and examined. Objective - Vital Signs Vital signs: Vital Signs Temp 97.8 F 03/01/19 08:00 Pulse 59 L 03/01/19 08:00 Resp 18 03/01/19 08:00 BP 100/64 03/01/19 08:00 Pulse Ox 93 L 03/01/19 08:00 Intake & Output 03/01/19 03/02/19 03/02/19 18:59 06:59 18:59 Other: # Voids 1 - Labs CBC & Chem 7: 02/28/19 05:38 02/28/19 05:38
--- NOTE | 2019-03-10 14:03 | EST ---
Stress Test Note Stress Test Results/Findings: Exam Performed: dobutamine stress echo Exam Date: 03/01/19 Reason for Exam: A-FIB / VERTIGO / SOB Height: 5 ft 7 in Weight: 69.853 kg Protocol: DSE Stage: 5 Duration of Exercise: 13:00 Resting Heart Rate: 43 Resting Blood Pressure: 104/77 Maximum Achieved Heart Rate: 131 Maximum Achieved Blood Pressure: 175/81 85% PMHR: 121 100% PMHR: 142 METS: NA Technologist Comment: Stress Test Results/Findings: Indication History of atrial fibrillation on Afternoon now presenting with a wide complex tachycardia with a very short on S duration consistent with aberrancy I reviewed all his strips and it appears to be regular tachycardia likely aberrancy Associated with dizziness no syncope Twelve-lead ECG after stopping propafenone showed sinus rhythm normal WI narrow QRS normal ST segments Patient received dobutamine infusion per protocol up to 40 mics. There was no tachycardia induced. Occasional PVCs and ventricular couplets were induced occasional PACs were induced Abnormal ECG response with ST depression inferolaterally was noted . [address] depression was noted this is followed by T-wave inversions How the baseline 2-D echo images showed normal LV systolic function without segmental wall motion abnormalities With dobutamine there was a stepwise increment in overall LV contractility No clear-cut wall motion abnormalities were noted At recovery reasonably systolic function with normal Impression Abnormal ECG response to dobutamine with ST depression of at least 2 mm without any chest discomfort No arrhythmias induced No echocardiographic evidence for ischemia MTDD
== END 2019-03-01 14:30 | disposition home or self-care (01) ==
LOC: EC 05:26 → 1SOBS 07:14
PROVIDERS: ADMIT Internal Medicine; ATTEND Internal Medicine
DX: R07.9 Chest pain, unspecified (principal); I44.1 Atrioventricular block, second degree; I10 Essential (primary) hypertension; Q23.1 Congenital insufficiency of aortic valve; I25.10 Atherosclerotic heart disease of native coronary artery without angina pectoris; I95.9 Hypotension, unspecified; I47.1 Supraventricular tachycardia; I69.320 Aphasia following cerebral infarction; I69.351 Hemiplegia and hemiparesis following cerebral infarction affecting right dominant side; I69.322 Dysarthria following cerebral infarction; E78.5 Hyperlipidemia, unspecified; M19.90 Unspecified osteoarthritis, unspecified site; K57.90 Diverticulosis of intestine, part unspecified, without perforation or abscess without bleeding; M51.26 Other intervertebral disc displacement, lumbar region; F32.9 Major depressive disorder, single episode, unspecified; R00.1 Bradycardia, unspecified; I45.10 Unspecified right bundle-branch block; I48.91 Unspecified atrial fibrillation; I71.9 Aortic aneurysm of unspecified site, without rupture; E66.9 Obesity, unspecified; Z68.31 Body mass index [BMI] 31.0-31.9, adult; Z79.899 Other long term (current) drug therapy; Z79.82 Long term (current) use of aspirin; Z96.651 Presence of right artificial knee joint; Z87.11 Personal history of peptic ulcer disease; Z87.891 Personal history of nicotine dependence; Z83.3 Family history of diabetes mellitus; Z82.49 Family history of ischemic heart disease and other diseases of the circulatory system; Z81.8 Family history of other mental and behavioral disorders; Z66 Do not resuscitate
CPT/HCPCS: 93005 ×2; 99285; 36415; 94760; 93017; 93306; 85379; 83880; 80061; 80053; 83735; 84484; 85025; 85610; 85730; 71046; 78452; G0378 ×2; A9500; J1245

== ENCOUNTER → 2019-04-05 | Outpatient (CLI) | payer MEDICARE, OTHER ==
[2019-04-05 13:45] LABS: African American GFR (CKD) >90 (>60 ml/min/1.73 sqM); Blood Urea Nitrogen 14 mg/dL (7-17); Non-African American GFR(CKD) >90 (>60 ml/min/1.73 sqM)
--- NOTE | 2019-04-05 15:15 | CT ---
EXAMINATION TYPE: CT angio tho/abd W Run Off DATE OF EXAM: 04/05/2019 COMPARISON: None HISTORY: Aortic valve disorder. CT DLP: 1821.6 mGycm CONTRAST: CTA thoracic and abdominal aorta with 3-D reconstruction is performed and with IV Contrast, patient i njected with 125 mL of Isovue 370. Contrast CTA of the thoracoabdominal aorta with runoff of the lower extremity arterial system was per formed from the lung bases through the ankles and feet. 3-D reconstruction imaging obtained at a [employer] workstation. Thoracic aorta: Ascending thoracic aortic aneurysm noted measuring 4.4 cm AP dimension. Aortic arch a nd descending thoracic aorta are of normal caliber. No evidence for dissection or operating factors. Branch vessels are patent. LUNGS: Mild nonspecific interstitial prominence. No focal consolidation pleural effusion nodule or ma ss. ABDOMINAL AORTA: Atheromatous and ectatic change of the abdominal aorta without evidence for aneurysm . Celiac, SMA and JEFF branches are patent. Atheromatous changes of the renal arteries without signifi cant stenosis appreciated at this time. Iliac vessels: Common iliac arteries are patent bilaterally. Mild atheromatous changes noted of the i nternal and external iliac arteries without evidence for hemodynamically significant stenosis. Femoral arteries: Mild scattered Soft and calcified plaque noted of the bilateral femoral arteries wi thout hemodynamically significant stenosis. Superficial Femoral arteries demonstrate mild scattered p laque as well without hemodynamically significant stenosis. Profunda femoris is patent bilaterally. Popliteal arteries: Popliteal arteries are patent bilaterally with only mild plaque formation noted. Right knee prosthesis limits evaluation of the right popliteal artery. Below the knee arteries: Trifurcation is patent bilaterally. Peroneal, anterior and posterior tibial arteries demonstrate mild calcific disease without evidence for hemodynamically significant stenosis. Limited runoff of the ankles and feet given timing of the contrast bolus. LIVER/GB- No significant abnormality is seen. PANCREAS- No significant abnormality is seen. SPLEEN- No significant abnormality is seen. ADRENALS- No significant abnormality is seen. KIDNEYS/BLADDER-Simple cyst right kidney. BOWEL- No Significant abnormality GENITAL ORGANS: No gross abnormality seen. LYMPH NODES- No greater than 1cm abdominal or pelvic lymph nodes are appreciated. OSSEOUS STRUCTURES-moderate to severe degenerative changes lower lumbar spine. OTHER- No significant abnormality is seen. IMPRESSION- 1. Ascending thoracic aortic aneurysm as noted. Atheromatous changes of the abdominal aorta iliacs an d runoff vessels without hemodynamically significant stenosis identified.
== END | disposition home or self-care (01) ==
LOC: RADCTMAIN 12:52
PROVIDERS: ATTEND Internal Medicine Interventional Cardiology
DX: I71.2 Thoracic aortic aneurysm, without rupture (principal); I70.0 Atherosclerosis of aorta
CPT/HCPCS: 82565; 84520; 75635; 71275; 36415; Q9967

== ENCOUNTER → 2021-03-08 | Outpatient (CLI) | payer MEDICARE, OTHER ==
[2021-03-08 10:51] LABS: African American GFR (CKD) >90 (>60 ml/min/1.73 sqM); Blood Urea Nitrogen 14 mg/dL (7-17); Non-African American GFR(CKD) >90 (>60 ml/min/1.73 sqM)
--- NOTE | 2021-03-08 17:38 | CT ---
EXAMINATION TYPE: CT angio thor/abd pel aorta DATE OF EXAM: 03/08/2021 COMPARISON: 04/05/2019 HISTORY: ascending aortic aneurysm CT DLP: 2025 mGycm Automated exposure control for dose reduction was used. Contrast: None Technique: Axial images 5 mm thick sections. Reconstructed images in the coronal and sagittal plane. Three-D reconstructed images performed separately by the technologist on a separate computer are pres ented. FINDINGS: Aorta: The aorta at the aortic root measures 3.9 cm. The ascending thoracic aorta at the main pulmona ry artery measures 4.4 cm. The aortic arch transverse dimension is 2.9 cm. The aorta at the diaphragm is 2.5 cm. The abdominal aorta tapers through its course to the bifurcation. Internal and external i liac vessels are patent. Common femoral to profunda femoris are normal. Note is made of vascular calc ification within the aorta. CT CHEST: Lung windows appear clear. The main pulmonary artery the bifurcation is 2.5 cm. No enlarged mediastinal or hilar lymph nodes are evident. CT ABDOMEN: Liver and spleen at this phase of contrast are normal. The pancreas appears within normal limits. The adrenal glands as visualized are normal. Cortical renal cyst on the right kidney. Inferi or vena cava is unremarkable. Loops of bowel without contrast are normal. IMPRESSION: 1. ASCENDING THORACIC AORTIC ANEURYSM MEASURING 4.4 CM. THIS IS STABLE.
== END | disposition home or self-care (01) ==
LOC: RADCTMAIN 10:16
PROVIDERS: ATTEND Internal Medicine Interventional Cardiology
DX: I71.2 Thoracic aortic aneurysm, without rupture (principal)
CPT/HCPCS: 82565; 84520; 71275; 36415; 74174; Q9967

== ENCOUNTER → 2021-10-10 | Outpatient (CLI) | payer MEDICARE, OTHER ==
[~2021-10-10] MED LIST: DENOSUMAB 60 MG/ML 1 ML SYRINGE SQ NR
[2021-10-10 13:34] VITALS: BP 97/59; PULSE 56; RESP 16; TEMP 97.4
== END | disposition home or self-care (01) ==
LOC: PROCWHC3 13:04
PROVIDERS: ATTEND Family Medicine
DX: M81.0 Age-related osteoporosis without current pathological fracture (principal)
CPT/HCPCS: 96372; J0897

== ENCOUNTER → 2021-11-08 | Outpatient (CLI) | payer MEDICARE, OTHER ==
--- NOTE | 2021-11-09 08:52 | MM ---
Reason for Exam: Screening (asymptomatic). Last mammogram was performed 3 year(s) and 3 month(s) ago. Patient History: Menarche at age 13. First Full-Term at age 14. Postmenopausal. Patient has history of breast feeding. Risk Values: Mary Grace 5 year model risk: 1.1%. NCI Lifetime model risk: 3.7%. Prior Study Comparison: 04/06/2013 Screening Mammogram, Unknown. 11/30/2015 Bilateral Diagnostic Mammogram, [facility]. 08/06/2018 Bilateral Screening Mammogram, [facility]. Tissue Density: There are scattered fibroglandular densities. Findings: Analyzed By CAD. Finding 1: Mass. Laterality: Right. There is a 9 mm oval mass with indistinct margins and equal density within the medial inferior right breast approximately 5 cm from the nipple. No suspicious microcalcifications. Overall Assessment: Incomplete: need additional imaging evaluation, BI-RAD 0 Management: Diagnostic Mammogram of the right breast. A clinical breast exam by your physician is recommended on an annual basis and results should be correlated with mammographic findings. [facility] will attempt to contact patient to return for supplemental views and ultrasound if indicated. Electronically signed and approved by: Johnny Zelaya D.O.
== END | disposition home or self-care (01) ==
LOC: RADMAMWWP 13:04
PROVIDERS: ATTEND Family Medicine
DX: Z12.31 Encounter for screening mammogram for malignant neoplasm of breast (principal)
CPT/HCPCS: 77063; 77067

== ENCOUNTER → 2021-11-12 | Outpatient (CLI) | payer MEDICARE, OTHER ==
--- NOTE | 2021-11-12 11:37 | MM ---
Reason for Exam: Additional evaluation requested from abnormal screening. Last screening mammogram was performed less than 1 month ago. Patient History: Menarche at age 13. First Full-Term at age 14. Postmenopausal. Patient has history of breast feeding. Risk Values: Mary Grace 5 year model risk: 1.1%. NCI Lifetime model risk: 3.7%. Prior Study Comparison: 04/06/2013 Screening Mammogram, Unknown. 11/30/2015 Bilateral Diagnostic Mammogram, [facility]. 08/06/2018 Bilateral Screening Mammogram, [facility]. 11/08/2021 Bilateral MG 3D screening mammo w/cad, [facility]. Tissue Density: Right: There are scattered fibroglandular densities. Findings: Analyzed By CAD. On compression the oval density in the lower inner aspect right breast disperses on the medial lateral oblique impression view. This partially discusses in the cranial caudal projection. Findings may be summation density, short-term follow-up is recommended. Overall Assessment: Probably benign, BI-RAD 3 Management: Diagnostic Mammogram of the right breast in 6 months. A clinical breast exam by your physician is recommended on an annual basis and results should be correlated with mammographic findings. This exam should not preclude additional follow-up of suspicious palpable abnormalities. Results were given to the patient verbally at the time of exam. Electronically signed and approved by: Shmuel Callaway D.O. Radiologis
== END | disposition home or self-care (01) ==
LOC: RADMAMWWP 08:46
PROVIDERS: ATTEND Family Medicine
DX: R92.8 Other abnormal and inconclusive findings on diagnostic imaging of breast (principal)
CPT/HCPCS: 77065; G0279; 77061

== ENCOUNTER → 2022-07-18 | Outpatient (CLI) | payer MEDICARE ==
[~2022-07-18] MED LIST changes: -DENOSUMAB 60 MG/ML 1 ML SYRINGE SQ NR; +DENOSUMAB 60 MG/ML 1 ML SYRINGE SQ ONE
[2022-07-18 13:23] VITALS: RESP 16
== END ==
LOC: PROCWHC3 12:50
PROVIDERS: ATTEND Physician Assistant Medical
DX: M81.0 Age-related osteoporosis without current pathological fracture (principal); Z87.891 Personal history of nicotine dependence
CPT/HCPCS: 96372; J0897

== ENCOUNTER 2022-08-13 09:47 | Emergency (ER) | payer MEDICARE ==
[2022-08-13 09:57] VITALS: RESP 18; TEMP 97.3
[2022-08-13 10:08] LABS: Glucose,Whole Blood 92 mg/dL (70-110)
[2022-08-13] MEDS ORDERED: SODIUM CHLORIDE 0.9% 500 ML 500 ML IV ONE (10:13)
[2022-08-13 10:32] LABS: Basophils # (A) 0.1 k/uL (0-0.2); Basophils % (A) 1 %; Eosinophils # (A) 0.3 k/uL (0-0.7); Eosinophils % (A) 4 %; HCT 45.2 % (34.0-46.0); HGB 14.2 gm/dL (11.4-16.0); Lymphocytes # (A) 1.6 k/uL (1.0-4.8); Lymphocytes % (A) 28 %; MCH 30.7 pg (25.0-35.0); MCHC 31.4 g/dL (31.0-37.0); MCV 97.8 fL (80.0-100.0); Mean Platelet Volume 8.3; Monocytes # (A) 0.3 k/uL (0-1.0); Monocytes % (A) 6 %; Neutrophils # (A) 3.4 k/uL (1.3-7.7); Neutrophils % (A) 59 %; Platelet Count 262 k/uL (150-450); RBC 4.62 m/uL (3.80-5.40); RDW 13.3 % (11.5-15.5); WBC 5.8 k/uL (3.8-10.6)
[2022-08-13 10:45] LABS: ALT 22 U/L (4-34); AST 26 U/L (14-36); African American GFR (CKD) >90 (>60 ml/min/1.73 sqM); Albumin 4.1 g/dL (3.5-5.0); Alkaline Phosphatase 70 U/L (38-126); Anion Gap 6 mmol/L; Blood Urea Nitrogen 13 mg/dL (7-17); Calcium 9.4 mg/dL (8.4-10.2); Carbon Dioxide 29 mmol/L (22-30); Chloride 103 mmol/L (98-107); Glucose 92 mg/dL (74-99); Non-African American GFR(CKD) >90 (>60 ml/min/1.73 sqM); Potassium 4.1 mmol/L (3.5-5.1); Sodium 138 mmol/L (137-145); Total Bilirubin 0.6 mg/dL (0.2-1.3); Total Protein 6.6 g/dL (6.3-8.2)
[2022-08-13 10:59] LABS: Partial Thromboplastin Time 21.7 sec (22.0-30.0); Prothrombin Time 10.4 sec (9.0-12.0)
--- NOTE | 2022-08-13 10:59 | CT ---
EXAMINATION TYPE: CT brain wo con DATE OF EXAM: 08/13/2022 COMPARISON: 05/24/2018 HISTORY: POST STROKE CT DLP: [address] of the brain was performed. The ventricles, basal cisterns and sulci overlying the cerebral convexities demonstrate mild enlargem ent. Moderate remote insult left MCA territory There is no evidence for intracranial hemorrhage or sulcal effacement. There is decreased attenuation about the periventricular white matter and deep white matter of both c erebral hemispheres, compatible with chronic small vessel ischemia. Differential diagnosis does inclu de demyelination. No mass effects are seen.No midline shift. Osseous calvarium is intact. If symptoms persist consider MRI. IMPRESSION: 1. Age related atrophic and chronic small vessel ischemic change without acute intracranial process s een at this time.
--- NOTE | 2022-08-13 11:00 | XR ---
EXAMINATION TYPE: XR chest 2V DATE OF EXAM: 08/13/2022 COMPARISON: 02/28/2019 HISTORY: Chest pain TECHNIQUE: Frontal and lateral views of the chest are obtained. FINDINGS: There is no focal air space opacity. No evidence for pneumothorax. No pleural effusion. The cardiac silhouette size is within normal limits. The osseous structures are grossly intact. IMPRESSION: 1. No acute cardiopulmonary process.
[2022-08-13 11:41] LABS: Appearance,Urine Clear (Clear); Bilirubin,Urine Negative (Negative); Blood,Urine Negative (Negative); Color,Urine Yellow; Glucose,Urine (UA) Negative (Negative); Ketones,Urine Negative (Negative); Leukocyte Esterase,Urine Negative (Negative); Nitrite,Urine Negative (Negative); Protein,Urine Negative (Negative); Specific Gravity,Urine 1.004 (1.001-1.035); Urobilinogen,Urine <2.0 mg/dL (<2.0)
[2022-08-13 12:27] VITALS: BP 101/65; PULSE 58
[2022-08-13 12:35] LABS: Amphetamine Screen,Urine Not Detected (NotDetected); Barbiturate Screen,Urine Not Detected (NotDetected); Benzodiazepines Screen,Urine Not Detected (NotDetected); Cocaine Screen,Urine Not Detected (NotDetected); Methadone Screen, Urine Not Detected (NotDetected); Opiate Screen,Urine Not Detected (NotDetected); Oxycodone Screen, Urine Not Detected (NotDetected); Phencyclidine Screen,Urine Not Detected (NotDetected); Tricyclic Antidepressant,Urine Not Detected (NotDetected); Urn Cannabinoid Scrn Not Detected (NotDetected)
--- NOTE | 2022-08-13 12:45 | ED ---
General Adult HPI - General Chief complaint: Neuro Symptoms/Deficit Stated complaint: AMS Time Seen by Provider: 08/13/22 09:52 Source: patient, family, EMS, RN notes reviewed Mode of arrival: EMS Limitations: physical limitation - History of Present Illness Initial comments: This a 67-year-old female presents emergency department via EMS for evaluation of paranoid thoughts. Family states that she's been having increasing paranoid thoughts in which she believes that her daughter is poisoning her. Patient symptoms have been going on since February. Patient has been seen by PCP. They discontinued all meds and had lab work which is unremarkable. Patient states that she has been taking her medications as directed now. She has no symptoms denies any complaints of headache dizziness blurred vision abdominal pain chest pain nausea vomiting diarrhea constipation. 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 - Related Data Home Medications Medication Instructions Recorded Confirmed Citalopram Hydrobromide [CeleXA] 40 mg PO HS 05/08/15 07/18/22 Dipyridamole-Aspirin 200-25 mg 1 cap PO BID 05/08/15 07/18/22 [Aggrenox 25MG -200MG] Vitamin E (Dl,Tocopheryl Acet) 400 unit PO DAILY 05/08/15 07/18/22 [Vitamin E (400 Iu = 180 mg)] Baclofen [Lioresal] 20 mg PO TID 05/18/18 07/18/22 Cyanocobalamin (Vitamin B-12) 1,000 mcg PO DAILY 05/18/18 07/18/22 [Vitamin B-12] L.acidoph,Paracasei, B.lactis 1 cap PO DAILY 05/18/18 07/18/22 [Probiotic] Metoprolol Tartrate [Lopressor] 25 mg PO DAILY 05/18/18 07/18/22 Atorvastatin Calcium [Lipitor] 40 mg PO HS 02/28/19 07/18/22 Calcium Citrate/Vitamin D/Magnesium 1 tab PO DAILY 02/28/19 07/18/22 Fish Oil/Dha/Epa [Fish Oil 1,200 1 cap PO TID 02/28/19 07/18/22 mg Fish Oil] Slow-Mag/Calcium 1 tab PO DAILY 02/28/19 07/18/22 Gabapentin [Neurontin] 100 mg PO BID 10/10/21 07/18/22 Aspirin [Adult Low Dose Aspirin EC] 81 mg PO DAILY 07/18/22 07/18/22 Multivit-Min/Iron/Folic/Lutein 1 tab PO DAILY 07/18/22 07/18/22 [Centrum Silver Women Tablet] Cholecalciferol [Vitamin D3 (25 50 mcg PO BID 08/13/22 08/13/22 Mcg = 1000 Iu)] Allergies Allergy/AdvReac Type Severity Reaction Status Date / Time No Known Allergies Allergy Verified 08/13/22 12:48 Review of Systems ROS Statement: Those systems with pertinent positive or pertinent negative responses have been documented in the HPI. ROS Other: All systems not noted in ROS Statement are negative. 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(SEES LIGHT/SHAPES, Right sided hemiparesis requiring AFO fo root drop and dysarthria, KEEP QUESTIONS SIMPLE WHEN TAKING TO PT(YES/NO ANSWERS).DIVERTICULAR DISEASE PER COLONOSCOPY, HERNIATED L4-, Gastric Ulcer, SVT s/p ablation , Descending aortic aneurysm History of Any Multi-Drug Resistant Organisms: None Reported Past Surgical History: Joint Replacement, Tonsillectomy Additional Past Surgical History / Comment(s): laser repair of mvp, right knee replaced, tummy tuck, LT KNEE SCOPE, CARDIAC ABLATION FOR SVT,COLONOSCOPY, MORTONS NEUROMA REMOVED FROM FOOT, LT FOOT HAMMER TOE SX HAS PIN IN PLACE, LT ADRENAL GLAND/TUMOR REMOVED, RT HAND KNUCKLE SX; catract surgery 2017 Past Anesthesia/Blood Transfusion Reactions: No Reported Reaction Past Psychological History: Depression Smoking Status: Former smoker Past Alcohol Use History: None Reported Past Drug Use History: Marijuana - Past Family History Father Family Medical History: Dementia, Myocardial Infarction ([place]) Additional Family Medical History / Comment(s): CABG Mother Family Medical History: Dementia, Diabetes Mellitus, Myocardial Infarction ([place]) Additional Family Medical History / Comment(s): CABG General Exam Limitations: physical limitation General appearance: alert, in no apparent distress Head exam: Present: atraumatic, normocephalic, normal inspection Eye exam: Present: normal appearance, PERRL, EOMI. Absent: scleral icterus, conjunctival injection, periorbital swelling ENT exam: Present: normal exam, normal oropharynx, mucous membranes moist Neck exam: Present: normal inspection, full ROM. Absent: tenderness, meningismus, lymphadenopathy Respiratory exam: Present: normal lung sounds bilaterally. Absent: respiratory distress, wheezes, rales, rhonchi, stridor Cardiovascular Exam: Present: regular rate, normal rhythm, normal heart sounds. Absent: systolic murmur, diastolic murmur, rubs, gallop, clicks GI/Abdominal exam: Present: soft, normal bowel sounds. Absent: distended, tenderness, guarding, rebound, rigid Extremities exam: Present: other (Right leg and arm weakness chronic) Neurological exam: Present: alert, oriented X3, CN II-XII intact, motor sensory deficit Skin exam: Present: warm, dry, intact, normal color. Absent: rash Course Vital Signs 08/13/22 08/13/22 08/13/22 09:51 11:13 12:00 Temperature 97.3 F L Pulse Rate 69 60 58 L Respiratory 18 18 18 Rate Blood Pressure 100/52 94/50 101/65 O2 Sat by Pulse 97 97 97 Oximetry EKG Findings - EKG Comments: EKG Findings:: EKG performed at 10:06 sinus rhythm with first-degree block, right bundle with a rate of 62 [place] 143 QT/QTC 4:30/435 - EKG Results: EKG: interpreted by MANGO Medical Decision Making - Medical Decision Making Was pt. sent in by a medical professional or institution ([facility], TREAD BUILDER, urgent care, hospital, or fci...) When possible be specific @ -No Did you speak to anyone other than the patient for history (EMS, parent, family, police, friend...)? What history was obtained from this source @ -EMS and family who provide all past medical history and current complaints including recent is with PCP. Did you review nursing and triage notes (agree or disagree)? Why? @ -I reviewed and agree with nursing and triage notes Were old charts reviewed (outside hosp., previous admission, EMS record, old EKG, old radiological studies, urgent care reports/EKG's, fci records)? Report findings @ -No old charts were reviewed Differential Diagnosis (chest pain, altered mental status, abdominal pain women, abdominal pain men, vaginal bleeding, weakness, fever, dyspnea, syncope, headache, dizziness, GI bleed, back pain, seizure, CVA, palpatations, mental health, musculoskeletal)? @ -nDifferential Altered Mental Status: Hypoglycemia, DKA, hypercapnia, ETOH, overdose, CO poisoning, trauma, myxedema coma, HTN encephalopathy, infection, encephalitis, psychosis, intercranial hemorrhage, hepatic encephalopathy, meningitis, CVA, this is not meant to be an all-inclusive listcable EKG interpreted by me (3pts min.). @ -As above X-rays interpreted by me (1pt min.). @ -Chest x-ray shows no acute process CT interpreted by me (1pt min.). @ -CT of the brain shows age rated changes no acute intracranial process U/S interpreted by me (1pt. min.). @ -None done What testing was considered but not performed or refused? (CT, X-rays, U/S, labs)? Why? @ -None What meds were considered but not given or refused? Why? @ -None Did you discuss the management of the patient with other professionals (professionals i.e. , PA, TREAD BUILDER, lab, RT, psych nurse, director social welfare, immersion metal cleaner, teacher, lodge officer, child support case officer)? Give summary @ -No Was smoking cessation discussed for >3mins.? @ -No Was critical care preformed (if so, how long)? @ -No Were there social determinants of health that impacted care today? How? (Homelessness, low income, unemployed, alcoholism, drug addiction, tra nsportation, low edu. Level, literacy, decrease access to med. care, penitentiary, rehab)? @ -No Was there de-escalation of care discussed even if they declined (Discuss DNR or withdrawal of care, Hospice)? DNR status @ -No What co-morbidities impacted this encounter? (DM, HTN, Smoking, COPD, CAD, Cancer, CVA, ARF, Chemo, Hep., AIDS, mental health diagnosis, sleep apnea, morbid obesity)? @ -CVA Was patient admitted / discharged? Hospital course, mention meds given and route, prescriptions, significant lab abnormalities, going to OR and other pertinent info. @ -Discharge I did have long discussion with patient and family regarding patient's normal laboratory findings normal CT and x-ray. This is been ongoing paranoid thoughts in which patient is a follow-up PCP neurology and possible psychiatric services. Patient family agree to this plan and was discharged in stable condition Undiagnosed new problem with uncertain prognosis? @ -No Drug Therapy requiring intensive monitoring for toxicity (Heparin, Nitro, Insulin, Cardizem)? @ -No Were any procedures done? @ -No Diagnosis/symptom? @ -History of CVA, paranoid thoughts Acute, or Chronic, or Acute on Chronic? @ -Acute Uncomplicated (without systemic symptoms) or Complicated (systemic symptoms)? @ -Uncomplicated Side effects of treatment? @ -No Exacerbation, Progression, or Severe Exacerbation? @ -No Poses a threat to life or bodily function? How? (Chest pain, [place], [place], pneumonia, PE, COPD, DKA, ARF, appy, cholecystitis, CVA, Diverticulitis, Homicidal, Suicidal, threat to staff... and all critical care pts) @ -No - Lab Data Result diagrams: 08/13/22 10:13 08/13/22 10:13 Lab Results 08/13/22 08/13/22 08/13/22 Range/Units 10:05 10:13 10:13 WBC 5.8 (3.8-10.6) k/uL RBC 4.62 (3.80-5.40) m/uL Hgb 14.2 (11.4-16.0) gm/dL Hct 45.2 (34.0-46.0) % MCV 97.8 (80.0-100.0) fL MCH 30.7 (25.0-35.0) pg MCHC 31.4 (31.0-37.0) g/dL RDW 13.3 (11.5-15.5) % Plt Count 262 (150-450) k/uL MPV 8.3 Neutrophils % 59 % Lymphocytes % 28 % Monocytes % 6 % Eosinophils % 4 % Basophils % 1 % Neutrophils # 3.4 (1.3-7.7) k/uL Lymphocytes # 1.6 (1.0-4.8) k/uL Monocytes # 0.3 (0-1.0) k/uL Eosinophils # 0.3 (0-0.7) k/uL Basophils # 0.1 (0-0.2) k/uL PT 10.4 (9.0-12.0) sec INR 1.0 (<1.2) APTT 21.7 L (22.0-30.0) sec Sodium (137-145) mmol/L Potassium (3.5-5.1) mmol/L Chloride (98-107) mmol/L Carbon Dioxide (22-30) mmol/L Anion Gap mmol/L BUN (7-17) mg/dL Creatinine (0.52-1.04) mg/dL Est GFR (CKD-EPI)AfAm (>60 ml/min/1.73 sqM) Est GFR (CKD-EPI)NonAf (>60 ml/min/1.73 sqM) Glucose (74-99) mg/dL POC Glucose (mg/dL) 92 (70-110) mg/dL POC Glu Job Spotter ID Beverly Oliva Calcium (8.4-10.2) mg/dL Total Bilirubin (0.2-1.3) mg/dL AST (14-36) U/L ALT (4-34) U/L Alkaline Phosphatase (38-126) U/L Ammonia (<30) umol/L Troponin I (0.000-0.034) ng/mL Total Protein (6.3-8.2) g/dL Albumin (3.5-5.0) g/dL Urine Color Urine Appearance (Clear) Urine pH (5.0-8.0) Ur Specific [place] (1.001-1.035) Urine Protein (Negative) Urine Glucose (UA) (Negative) Urine Ketones (Negative) Urine Blood (Negative) Urine Nitrite (Negative) Urine Bilirubin (Negative) Urine Urobilinogen (<2.0) mg/dL Ur Leukocyte Esterase (Negative) Urine Opiates Screen (NotDetected) Ur Oxycodone Screen (NotDetected) Urine Methadone Screen (NotDetected) Ur Propoxyphene Screen (NotDetected) Ur Barbiturates Screen (NotDetected) U Tricyclic Antidepress (NotDetected) Ur Phencyclidine Scrn (NotDetected) Ur Amphetamines Screen (NotDetected) U Methamphetamines Scrn (NotDetected) U Benzodiazepines Scrn (NotDetected) Urine Cocaine Screen (NotDetected) U Marijuana (THC) Screen (NotDetected) 08/13/22 08/13/22 08/13/22 Range/Units 10:13 10:13 10:15 WBC (3.8-10.6) k/uL RBC (3.80-5.40) m/uL Hgb (11.4-16.0) gm/dL Hct (34.0-46.0) % MCV (80.0-100.0) fL MCH (25.0-35.0) pg MCHC (31.0-37.0) g/dL RDW (11.5-15.5) % Plt Count (150-450) k/uL MPV Neutrophils % % Lymphocytes % % Monocytes % % Eosinophils % % Basophils % % Neutrophils # (1.3-7.7) k/uL Lymphocytes # (1.0-4.8) k/uL Monocytes # (0-1.0) k/uL Eosinophils # (0-0.7) k/uL Basophils # (0-0.2) k/uL PT (9.0-12.0) sec INR (<1.2) APTT (22.0-30.0) sec Sodium 138 (137-145) mmol/L Potassium 4.1 (3.5-5.1) mmol/L Chloride 103 (98-107) mmol/L Carbon Dioxide 29 (22-30) mmol/L Anion Gap 6 mmol/L BUN 13 (7-17) mg/dL Creatinine 0.65 (0.52-1.04) mg/dL Est GFR (CKD-EPI)AfAm >90 (>60 ml/min/1.73 sqM) Est GFR (CKD-EPI)NonAf >90 (>60 ml/min/1.73 sqM) Glucose 92 (74-99) mg/dL POC Glucose (mg/dL) (70-110) mg/dL POC Glu Job Spotter ID Calcium 9.4 (8.4-10.2) mg/dL Total Bilirubin 0.6 (0.2-1.3) mg/dL AST 26 (14-36) U/L ALT 22 (4-34) U/L Alkaline Phosphatase 70 (38-126) U/L Ammonia <9 (<30) umol/L Troponin I <0.012 (0.000-0.034) ng/mL Total Protein 6.6 (6.3-8.2) g/dL Albumin 4.1 (3.5-5.0) g/dL Urine Color Urine Appearance (Clear) Urine pH (5.0-8.0) Ur Specific [place] (1.001-1.035) Urine Protein (Negative) Urine Glucose (UA) (Negative) Urine Ketones (Negative) Urine Blood (Negative) Urine Nitrite (Negative) Urine Bilirubin (Negative) Urine Urobilinogen (<2.0) mg/dL Ur Leukocyte Esterase (Negative) Urine Opiates Screen (NotDetected) Ur Oxycodone Screen (NotDetected) Urine Methadone Screen (NotDetected) Ur Propoxyphene Screen (NotDetected) Ur Barbiturates Screen (NotDetected) U Tricyclic Antidepress (NotDetected) Ur Phencyclidine Scrn (NotDetected) Ur Amphetamines Screen (NotDetected) U Methamphetamines Scrn (NotDetected) U Benzodiazepines Scrn (NotDetected) Urine Cocaine Screen (NotDetected) U Marijuana (THC) Screen (NotDetected) 08/13/22 08/13/22 Range/Units 11:37 11:37 WBC (3.8-10.6) k/uL RBC (3.80-5.40) m/uL Hgb (11.4-16.0) gm/dL Hct (34.0-46.0) % MCV (80.0-100.0) fL MCH (25.0-35.0) pg MCHC (31.0-37.0) g/dL RDW (11.5-15.5) % Plt Count (150-450) k/uL MPV Neutrophils % % Lymphocytes % % Monocytes % % Eosinophils % % Basophils % % Neutrophils # (1.3-7.7) k/uL Lymphocytes # (1.0-4.8) k/uL Monocytes # (0-1.0) k/uL Eosinophils # (0-0.7) k/uL Basophils # (0-0.2) k/uL PT (9.0-12.0) sec INR (<1.2) APTT (22.0-30.0) sec Sodium (137-145) mmol/L Potassium (3.5-5.1) mmol/L Chloride (98-107) mmol/L Carbon Dioxide (22-30) mmol/L Anion Gap mmol/L BUN (7-17) mg/dL Creatinine (0.52-1.04) mg/dL Est GFR (CKD-EPI)AfAm (>60 ml/min/1.73 sqM) Est GFR (CKD-EPI)NonAf (>60 ml/min/1.73 sqM) Glucose (74-99) mg/dL POC Glucose (mg/dL) (70-110) mg/dL POC Glu Job Spotter ID Calcium (8.4-10.2) mg/dL Total Bilirubin (0.2-1.3) mg/dL AST (14-36) U/L ALT (4-34) U/L Alkaline Phosphatase (38-126) U/L Ammonia (<30) umol/L Troponin I (0.000-0.034) ng/mL Total Protein (6.3-8.2) g/dL Albumin (3.5-5.0) g/dL Urine Color Yellow Urine Appearance Clear (Clear) Urine pH 7.0 (5.0-8.0) Ur Specific [place] 1.004 (1.001-1.035) Urine Protein Negative (Negative) Urine Glucose (UA) Negative (Negative) Urine Ketones Negative (Negative) Urine Blood Negative (Negative) Urine Nitrite Negative (Negative) Urine Bilirubin Negative (Negative) Urine Urobilinogen <2.0 (<2.0) mg/dL Ur Leukocyte Esterase Negative (Negative) Urine Opiates Screen Not Detected (NotDetected) Ur Oxycodone Screen Not Detected (NotDetected) Urine Methadone Screen Not Detected (NotDetected) Ur Propoxyphene Screen Not Detected (NotDetected) Ur Barbiturates Screen Not Detected (NotDetected) U Tricyclic Antidepress Not Detected (NotDetected) Ur Phencyclidine Scrn Not Detected (NotDetected) Ur Amphetamines Screen Not Detected (NotDetected) U Methamphetamines Scrn Not Detected (NotDetected) U Benzodiazepines Scrn Not Detected (NotDetected) Urine Cocaine Screen Not Detected (NotDetected) U Marijuana (THC) Screen Not Detected (NotDetected) Disposition Clinical Impression: History of CVA (cerebrovascular accident), Paranoid behavior Disposition: HOME SELF-CARE Condition: Stable Additional Instructions: Please follow-up with your primary care physician and neurology as directed. Please return to the Emergency Department if symptoms worsen or any other concerns. Is patient prescribed a controlled substance at d/c from ED?: No Referrals: Pancho Diggs MD [Primary Care Provider] - 1-2 days [facility] [NON-STAFF] - (Contact for more information.) Forms: Community Resources, Help In The Home Time of Disposition: 12:45
== END 2022-08-13 13:01 | disposition home or self-care (01) ==
LOC: EC 09:47
DX: Z86.73 Personal history of transient ischemic attack (TIA), and cerebral infarction without residual deficits (principal); F60.0 Paranoid personality disorder; I67.82 Cerebral ischemia; E78.5 Hyperlipidemia, unspecified; M19.90 Unspecified osteoarthritis, unspecified site; F32.A Depression, unspecified; F12.90 Cannabis use, unspecified, uncomplicated; Z87.891 Personal history of nicotine dependence; Z79.1 Long term (current) use of non-steroidal anti-inflammatories (NSAID); Z79.899 Other long term (current) drug therapy; Z79.82 Long term (current) use of aspirin
CPT/HCPCS: 36415; 70450; 71046; 80053; 80306; 81003; 82140; 84484; 85025; 85610; 85730; 93005; 99285

== ENCOUNTER → 2023-09-18 | Outpatient (CLI) | payer MEDICARE ==
[2023-09-18] MEDS: DENOSUMAB 60 MG/ML 1 ML SYRINGE SQ NR (14:31)
[2023-09-18 14:52] VITALS: BP 99/67; PULSE 57; RESP 16; TEMP 97.8
== END ==
LOC: PROCWHC3 14:21
PROVIDERS: ATTEND Family Medicine
DX: M81.0 Age-related osteoporosis without current pathological fracture (principal)
CPT/HCPCS: 96372; J0897

== ENCOUNTER → 2024-04-16 | Outpatient (CLI) | payer MEDICARE ==
[2024-04-16 13:24] VITALS: BP 116/74; PULSE 61; RESP 16; TEMP 98.1
[2024-04-16] MEDS: DENOSUMAB 60 MG/ML 1 ML SYRINGE SQ NR (13:25)
== END ==
LOC: PROCWHC3 13:12
PROVIDERS: ATTEND Family Medicine
DX: M81.0 Age-related osteoporosis without current pathological fracture (principal)
CPT/HCPCS: 96372; J0897